=== PATIENT | female | born 1945 | race Caucasian/White ===

== ENCOUNTER → 2017-11-24 12:39 | Outpatient (CLI) | payer MEDICARE, SELFPAY ==
--- NOTE | 2017-11-24 12:45 | BI_ITS ---
MAMMOGRAPHY - BILATERAL SCREENING REASON FOR EXAM: Female, 72 years old. Routine annual screening examination. PERTINENT HISTORY: Non-contributory. TECHNIQUE: Digital bilateral breast vipin (3D mammographic acquisition) in the CC and MLO projections. 2-D mediolateral oblique (MLO) and craniocaudad (CC) views of both breasts were obtained. CAD: Full Field Digital Mammography with Computer Added Detection was performed. COMPARISON: Comparison is made with prior study dated October 14, 2016 and May 13, 2015. FINDINGS: Breast Composition: The breasts are heterogeneously dense, which may obscure small masses. There are no dominant masses or suspicious calcifications. No other significant abnormalities are identified. There has been no significant change since the prior study. BI/SCREENING MAMM (CAD), BILAT IMPRESSION: Stable bilateral screening mammogram. Yearly follow-up mammogram recommended. (A) ASSESSMENT CATEGORY: BIRADS Category 1: Negative. A letter regarding these results will be sent to the patient by the facility within 30 days. Approximately 10% of breast cancers are not detected by mammography. A normal mammogram should not delay biopsy of a clinically suspicious abnormality. [id number] Electronically Signed: Tucker Kerr MD at 8:25 EDT Tel [phone], Service support ,
== END ==
PROVIDERS: Family Provider Family Medicine; PCP Family Medicine; Visit Provider Family Medicine
DX: Z00.00 Encounter for general adult medical examination without abnormal findings (principal); Z12.31 Encounter for screening mammogram for malignant neoplasm of breast
CPT/HCPCS: 77063; 77067

== ENCOUNTER → 2019-04-03 10:15 | Outpatient (CLI) | payer MEDICARE, SELFPAY ==
[2017-01-18 10:55] VITALS: BMI 22.1
[2019-04-03 12:52] LABS: Anion Gap 4 (5-15); BUN 12 mg/dL (7-18); BUN/Creat Ratio 16.8 RATIO (10-20); Chloride 103 mmol/L (98-107); Cholesterol 235 mg/dL (200); Creatinine, Serum 0.71 mg/dL (0.55-1.02); EST Glomerular Filtration Rate 86 mL/min (>60); Est Glom Filt Rate - Afr Amer 104 mL/min (>60); Glucose 103 mg/dL (74-106); High Density Lipoprotein 87 mg/dL; Sodium Level 136 mmol/L (136-145); Triglycerides 177 mg/dL; Very Low Density Lipoprotein 35 mg/dL (5-40); Vitamin D,25 Hydroxy 29.8 ng/mL (29.95-100.01)
== END ==
PROVIDERS: Family Provider Family Medicine; PCP Family Medicine; Referring Provider Family Medicine; Visit Provider Family Medicine
DX: Z00.00 Encounter for general adult medical examination without abnormal findings (principal); N95.9 Unspecified menopausal and perimenopausal disorder
CPT/HCPCS: 36415; 80048; 80061; 82306

== ENCOUNTER → 2019-04-30 14:22 | Outpatient (CLI) | payer MEDICARE, SELFPAY ==
[2017-01-18 10:55] VITALS: BMI 22.1
--- NOTE | 2019-04-30 14:24 | BI_ITS ---
MAMMOGRAPHY - BILATERAL SCREENING REASON FOR EXAM: Female, 73 years old. Routine annual screening examination. PERTINENT HISTORY: Non-contributory. TECHNIQUE: Digital bilateral breast tolu (3D mammographic acquisition) in the CC and MLO projections. 2-D mediolateral oblique (MLO) and craniocaudad (CC) views of both breasts were obtained. CAD: Full Field Digital Mammography with Computer Added Detection was performed. COMPARISON: Comparison is made with prior study dated November 24, 2017 and October 14, 2016. FINDINGS: Breast Composition: The breasts are heterogeneously dense, which may obscure small masses. There are no dominant masses or suspicious calcifications. No other significant abnormalities are identified. There has been no significant change since the prior study. BI/SCREEN MAMM (CAD) W/TOLU BILAT IMPRESSION: Stable bilateral screening mammogram. Yearly follow-up mammogram recommended. (A) ASSESSMENT CATEGORY: BIRADS Category 2: Benign. A letter regarding these results will be sent to the patient by the facility within 30 days. Approximately 10% of breast cancers are not detected by mammography. A normal mammogram should not delay biopsy of a clinically suspicious abnormality. [id number] Electronically Signed: Tucker Kerr, at 15:44 EST , Service support ,
--- NOTE | 2019-04-30 14:27 | BD_ITS ---
STUDY: DUAL ENERGY X-RAY ABSORPTIOMETRY / DXA REASON FOR EXAM: Female, 73 years old. The patient is postmenopausal. Loss of height. TECHNIQUE: Bone Mineral Density (BMD) measurements of lumbar spine and bilateral hips were obtained. COMPARISON: Comparison is made with prior study dated August 06, 2013. FINDINGS: Lumbar Spine (L1-L4): g/cm2 (1.161) / T-score (-0.2) / Z-score (1.5) Findings are suggestive of normal bone density with a low fracture risk. Left Femur Total: g/cm2 (1.053) / T-score (0.4) / Z-score (1.9) Left Femoral Neck: g/cm2 (0.988) / T-score (-0.4) / Z-score (1.4) Right Femur Total: g/cm2 (1.046) / T-score (0.3) / Z-score (1.9) Right Femoral Neck: g/cm2 (0.951) / T-score (-0.6) / Z-score (1.1) The T-Scores on the most recent prior examination were: Lumbar Spine (L1-L4): There has been improvement of bone density since the previous examination. Left Femur Total: which represents a worsening of 4.6%. Right Femur Total: which represents a worsening of 4.8%. BD/Dexa Bone Density Study IMPRESSION: The patient is considered normal as outlined below according to World [place] Organization (WHO) criteria with a low fracture risk. There has been worsening of bone density since the previous examination. Reference Information: The T-score is the number of standard deviations above or below the standard which is normal for young adults at their peak bone mineral density. The World Health Organization (WHO) interprets the T-scores as follows: Above -1 Normal bone density Between -1 and -2.5 Osteopenia Equal to / or below -2.5 Osteoporosis As a practical clinical guideline, osteopenia may be graded as follows: Mild -1 through -1.5 Moderate -1.6 through -2.0 Severe -2.1 through -2.4 The Z-score is the number of standard deviations above or below age-matched controls. A Z-score of less than -1.5 would be considered abnormal. References: 1. NIH Osteoporosis and Related Bone Diseases http://www.osteo.org 2. International Society for Clinical Densitometry http://www.iscd.org 3. National Osteoporosis Foundation http://www.nof.org Electronically Signed: Tucker Kerr, at 13:12 EST , Service support ,
== END ==
PROVIDERS: Family Provider Family Medicine; PCP Family Medicine; Referring Provider Family Medicine; Visit Provider Family Medicine
DX: Z12.31 Encounter for screening mammogram for malignant neoplasm of breast (principal); N95.9 Unspecified menopausal and perimenopausal disorder
CPT/HCPCS: 77063; 77067; 77080

== ENCOUNTER 2019-05-10 09:30 | Outpatient (RCR) | payer MEDICARE, SELFPAY ==
--- NOTE | 2019-04-10 15:30 | HP.PTEVAL ---
Patient's Visit Information MARELY ZARAGOZA is a 73 year old F referred to Physical Therapy by Jen Poon MD with a diagnosis of RIGHT SHOULDER STAIN. Date of Evaluation: 04/10/19 Physical Therapist: Efren Hays, PT, Cert MDT, OCS - Visit Plan Frequency: 2x /Week Duration: 4 Weeks Plan: PT INTERVENTION POSTURAL EX'S ,RTC /SCAPULAR STRENGTHENING,MODLATIES FOR PAIN RELEIVE - Subjective Findings: This 73 y/o female presents to physical therapy with right shoulder strain.Patient has h/o shoulder pain several years. But,most recently past several months developed increase shoulder pain from doing outside yard work and gardenig.Location lateral /anterior shoulder region. Patient descibes as pain pinches with rotation in foward postion. Symptoms worse with OH activities,lifting ADL'S . Denies parathesia/tingling.Patient described as weakness. Patient pain affects sleeping. Patient MD recommended PT. Patient right shoulder pain affects QOL and function. SOCIAL: single. VOCATION: retired - Pain Right Shoulder Pain Intensity (Out of 10): 3 Pain Intensity Range: 10 - Objective POSTURE: mild foward posture ,shoulders rounded. NEURO:intact. PALAPTION: anterior shoulder. AROM: shoulder flexion 150 /abduction 150 degrees pain,90 degrees,IR 70 degrees pain. MMT: Infraspinatous 4-/5 pain .subscapularis 4/5,supraspinatous 4-/5 ,deltoid mild pain - Special Tests R Shoulder External Rotation Lag Test - RC Tear: Negative R Shoulder Drop Sign - IS Test: Negative R Shoulder Empty Can - SS: Positive R Shoulder Belly Press - SupScap: Negative R Shoulder Neer - Impingement: Positive R Shoulder Willard Brandon - Impingement: Positive R Shoulder Yeargasons - SLAP: Negative R Shoulder Shrug Sign - OA/Adhesive Capsulitis: Negative - Goals Goal 1:: Patient to be Independant with HEP Goal Time Frame: 4-6 Weeks Goal 2:: Patient to improve posture for ADL'S Goal Time Frame: 4-6 Weeks Goal 3:: Patient to decrease shoulder pain by 50 % or> for ADLS' and housework tasks. Goal Time Frame: 4-6 Weeks Goal 4:: Patient to increase strength RTC and deltoid 4/5 to impove function with less pain Goal Time Frame: 4-6 Weeks Goal 5:: Patient to improve quick dash by 5 points or> to improve QOL. Goal Time Frame: 4-6 Weeks - Rehabilitation Potential Physical Therapy Diagnosis: Patient has right shoulder tendonesis with RTC involvement with pain with MMT, shoulder ROM ,affects ADLS and activities above 90 ,sleeping thus benifit from skilled PT Rehabilitation Potential: Good - Anticipated Interventions Patient/Client Instruction: Educate patient on: Condition, Plan of Care For the Purpose of:: To decrease pain, To decrease swelling/inflammation, To improve muscle performance and motor function, To improve ability to perform ADL's, To increase tolerance to activity/condition/position, To improve ability of physical actions for home/community/work/leisure, To increase flexibility/ROM, To reduce risk of recurrence, To improve ability to perform tasks related to life management Therapeutic Exercise to Include: Strength training, Postural training, Active ROM, Scapular Strength/Stabilization Comment: RTC For the Purpose of:: To decrease pain, To increase ROM, To improve muscle performance and motor function, To improve ability to perform ADL's, To improve performance and independence with ADL's, To improve ability of physical actions for home/community/work/leisure, To improve health of tissue, To decrease soft tissue restriction, To increase flexibility/ROM, To improve ability to perform tasks related to life management TENS: Yes IF ES: Yes Cryotherapy (ice pack, ice massage): Yes Thermo therapy (hot pack): Yes Ultrasound (thermal/non thermal): Yes For the Purpose of:: To decrease pain, To decrease swelling/inflammation, To increase ROM, To improve nutrient delivery to tissue, To increase oxygenation perfusion, To improve health of tissue, To decrease soft tissue restriction Thank you for the opportunity to evaluate your patient. For Medicare and Medicare HMO plans, please review the plan of care and approve it. It will need to be FAXED BACK to us at [phone] for Medicare purposes. For Medicare only, by signing this I certify the plan of care. Please let me know if there are questions or concerns regarding this plan of care. Physician Signature: Date:
== END 2019-05-10 17:00 | disposition home or self-care (01) ==
LOC: PT 09:30
PROVIDERS: Family Provider Family Medicine; PCP Family Medicine; Referring Provider Family Medicine; Visit Provider Family Medicine
DX: S46.911D Strain of unspecified muscle, fascia and tendon at shoulder and upper arm level, right arm, subsequent encounter (principal)
CPT/HCPCS: 97014; 97035; 97110; 97162; 97530; G0283

== ENCOUNTER → 2019-05-28 13:10 | Outpatient (CLI) | payer MEDICARE, SELFPAY ==
[2019-05-28 12:59] VITALS: BMI 22.1
--- NOTE | 2019-05-28 13:10 | RAD_ITS ---
STUDY: X-RAY - RIGHT SHOULDER REASON FOR EXAM: Pain. TECHNIQUE: 3 view(s) of the shoulder. COMPARISON: None. FINDINGS: Normal glenohumeral articulation. There is mild acromioclavicular arthrosis. Normal acromion. Normal humeral head and visualized proximal humerus. There is a calcification adjacent to the lesser tuberosity suggestive of subscapularis calcific tendinitis. Normal visualized pulmonary apex. RAD/Shoulder min 2 Views IMPRESSION: Subscapularis calcific tendinitis. Mild acromioclavicular arthrosis. Electronically Signed: Stephon Horn MD at 15:11 EST Tel , Service support ,
--- NOTE | 2019-05-28 13:10 | RAD_ITS ---
STUDY: X-RAY - CERVICAL SPINE REASON FOR EXAM: Female, 73 years old. Pain. TECHNIQUE: 5 view(s) of the cervical spine were obtained. COMPARISON: None FINDINGS: Normal anterior atlantoaxial articulation. Normal odontoid process. Reversal of curvature. 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 3 mm retrolisthesis C5 on C6. Otherwise normal alignment. Oblique views show narrowing of the right neural foramina at C5-C6 and C6-C7 and on the left at 4, C4-C5, C6-C7. No fractures or dislocations. The soft tissue structures are unremarkable. RAD/Cerv Spine 4 or 5 Views IMPRESSION: Multilevel degenerative changes including neural foraminal narrowing as above. Electronically Signed: Shaquille Elias MD at 21:25 EST , Service support ,
== END ==
PROVIDERS: Family Provider Family Medicine; PCP Family Medicine; Referring Provider Orthopaedic Surgery; Visit Provider Orthopaedic Surgery
DX: M75.31 Calcific tendinitis of right shoulder (principal); M19.011 Primary osteoarthritis, right shoulder; M50.322 Other cervical disc degeneration at C5-C6 level; M48.02 Spinal stenosis, cervical region
CPT/HCPCS: 72050; 73030

== ENCOUNTER → 2019-06-10 06:31 | Outpatient (CLI) | payer MEDICARE, SELFPAY ==
[2019-05-28 12:59] VITALS: BMI 22.1
--- NOTE | 2019-06-10 06:33 | MRI_ITS ---
STUDY: MRI RIGHT SHOULDER REASON FOR EXAM: Female, 73 years old. Right shoulder pain with limited range of motion. Pain radiating into biceps. TECHNIQUE: Standardized fat and water weighted pulse sequences were obtained in all 3 orthogonal planes. COMPARISON: None. FINDINGS: Supraspinatus tendinosis with a full thickness partial width tear of the far anterior fibers measuring approximately 8 mm in widest diameter (coronal series 6 images 14-17). Infraspinatus tendinosis with a longitudinal intrasubstance partial tear without a full-thickness tear (coronal series 6 images 9-12). Subscapularis tendinosis without a full-thickness tear (axial series 3 images 8-13). Normal teres minor tendon. Normal supraspinatus muscle. Normal infraspinatus muscle. Normal subscapularis muscle. Normal teres minor muscle. Mild thinning of the articular cartilage of the glenohumeral joint with a glenohumeral joint effusion (axial series 3 images 8-17). Marked cystic change in the lateral aspect of the humeral head (axial series 3 images 8-11). Normal biceps labral complex. Torn, retracted long head of the biceps tendon (axial series 3 images 6-16). Normal labrum. Normal capsulo- ligamentous complex. Normal rotator interval. Acromioclavicular joint hypertrophy with minimal narrowing of the subacromial space (coronal series 6 images 10-14). There is a Type II morphology (curved), with a neutral orientation. Fluid in the subacromial-subdeltoid bursa (coronal series 6 image 12). Normal visualized coracohumeral and coracoacromial ligaments. Normal quadrilateral space. Normal axillary space. Normal deltoid muscle. Normal trapezius muscle. MRI/Upper Ext Joint Only(Routine) IMPRESSION: Supraspinatus tendinosis with an 8 mm in diameter full-thickness partial width tear of the far anterior fibers. Infraspinatus tendinosis with an intrasubstance longitudinal partial tear without a full-thickness tear. Subscapularis tendinosis without a full thickness tear. Mild thinning of the articular cartilage of the glenohumeral joint. Cystic change in the greater tuberosity of the humeral head. Torn, retracted long head of the biceps tendon. Acromioclavicular joint hypertrophy with minimal narrowing of the subacromial space. Glenohumeral joint effusion with fluid in the subacromial-subdeltoid bursa. Electronically Signed: Alexandre Campbell MD at 12:07 EST , Service support ,
== END ==
PROVIDERS: Family Provider Family Medicine; PCP Family Medicine; Referring Provider Orthopaedic Surgery; Visit Provider Orthopaedic Surgery
DX: M25.311 Other instability, right shoulder (principal)
CPT/HCPCS: 73221

== ENCOUNTER 2019-07-03 05:57 | Day surgery (SDC) | payer MEDICARE, SELFPAY ==
[2019-06-20 08:53] VITALS: BMI 22.1
--- NOTE | 2019-06-20 09:21 | HP_ITS ---
I have re-examined the patient. There are no clinical changes since date of exam. Intake Vital Signs 06/20/19 BMI 22.1 Intake Visit Reasons: RIGHT SHOULDER Allergies bee pollen Allergy (Verified 01/11/17 08:08) Anaphylaxis Penicillins [PCN] Allergy (Verified 01/11/17 08:08) Hives Medications Aspirin [Aspirin, Baby] 81 mg PO DAILY@0800 01/11/17 [History Confirmed 06/20/19] Niacinamide [Niacin] 500 mg PO BID 01/11/17 [History Confirmed 06/20/19] Davison-3 Fatty Acids/Fish Oil [Fish Oil 1,000 mg Capsule] 1 ea PO DAILY 01/11/17 [History Confirmed 06/20/19] Propranolol HCl [Inderal] 10 mg PO DAILY 01/11/17 [History Confirmed 06/20/19] cholecalciferol (vitamin D3) 4,000 unit capsule 4,000 unit PO DAILY 05/28/19 [History Confirmed 06/20/19] PFSH Social History (Updated 06/20/19 @ 10:03 by Catherine Ramon DO) Smoking Status: Never smoker HPI RIGHT SHOULDER: Surgical H&P: Yes Details: Parts of this documentation were recorded by a scribe, this documentation accurately reflects the service provided and the decisions made by me, Catherine Ramon DO 06/20/19 [id number]. MARELY ZARAGOZA is a 73 year old F here today for F/U after having her MRI of right shoulder completed on 06/10/19. Denies numbness, tingling or other associated symptoms. Patient had a subacromial injection on 05/28/2019 which she states has relieved 80% of her pain. She is still getting an occasional sharp pain over her anterior shoulder which radiates over her biceps. She also states that she is still having clicking/cracking at times which is not painful. Denies any other changes. ROS ENT Denies neck pain Musc Denies neck pain, Denies numbness, Denies tingling Skin/Breast Denies redness, Denies lesions, Denies itching, Denies rash, Denies skin pain Neuro No numbness, No tingling Ortho Exam Right Shoulder Testing: Positive Hawkin's, TTP Biceps, AROM-Forward Elevation 0-180, PROM- Forward Elevation 0-180 and empty can; negative AROM-External Rotation at side 0-60 No rales rhonchi wheezing, no abdominal pain, no audible bruits Assessment & Plan Problems 1. Complete tear of right rotator cuff, unspecified whether traumatic M75.121 2. Biceps tendonitis on right M75.21 Plan Personally reviewed the MRI and explained that she has a rotator cuff tear, her treatment options are do nothing, steroid injections every 4 months, PT or surgery for repair if the conservative treatments fail. Reviewed risks and explained that the longer she waits for surgery the increased risk of failure due to the health of the muscle. Reviewed the difference between biceps tenodesis vs tenotomy. Reviewed the pre-operative plans with the patient. Risks and benefits of the procedure were fully explained, including but not limited to infection, neurovascular injury, continued pain, arthritis, stiffness, need for further surgery, re-injury, DVT, PE, general risks of anesthesia, and loss of limb or life. The patient understands all the risks and does wish to proceed with written consent. Follow up post op or sooner if pain, swelling, numbness or associated symptoms, or concerns develop. All questions answered. Patient in agreement of plan. Coding Level of Care Code Off vis,est,level 4 Diagnoses Complete tear of right rotator cuff, unspecified whether traumatic M75.121 ??Rotator cuff tear extent: complete ??Rotator cuff tear trauma status: unspecified whether traumatic Biceps tendonitis on right M75.21 06/20/19 1003 <Electronically signed by Catherine ram DO> Date _ Catherine Ramon DO
--- NOTE | 2019-06-27 12:55 | EKG12_ITS ---
Test Reason : PRE-OP Blood Pressure : / mmHG Vent. Rate : 056 BPM Atrial Rate : 056 BPM P-R Int : 130 ms QRS Dur : 092 ms QT Int : 388 ms P-R-T Axes : 052 049 047 degrees QTc Int : 374 ms Sinus bradycardia Minimal voltage criteria for LVH, may be normal variant Borderline ECG Confirmed by SUSAN BIRD, SCARLET ([id number]), slot editor WAN MENJIVAR ([id number]) on 06/28/2019 9:45:51 AM Referred By: Catherine Ramon Confirmed By:KRISTIN DAVIS MD
[2019-07-03 06:34] VITALS: PULSE 64; RESP 16; TEMP 36.8; O2SAT 100; BMI 23.1
[2019-07-03] MEDS: Lactated Ringers 1,000 ML 100 ML IV ×2 (06:42→09:14)
--- NOTE | 2019-07-03 07:17 | PCM.DC.ORTHO ---
Discharge Diet: No Restrictions - remove dressings in 4 days and apply bandaids to incision sites, may get incision wet at that time, call with concerns, follow up in 10-14 days for suture removal and initiation of pt, may move hand and elbow as tolerated, Discharge Activity: May Not Drive May shower in (days): 1 Ice area for (Minutes): 20 - Every hour while awake. Weight Bearing Status: Weight bearing as tolerated Keep extremity elevated above heart level: Operative Extremity Call your doctor if your incision/area has: Continuous Slow Oozing, Sudden Increased Bleeding, Increased Pain/ Swelling, Increased Redness, Foul Smelling Discharge Call your doctor if you observe: Fever of 101 or Higher, Coldness, Increased Pain, Numbness or Tingling, Change in Color, Calf discomfort Allergies/Adverse Reactions: Allergies bee pollen Allergy (Verified 07/03/19 06:30) Anaphylaxis benzocaine Allergy (Verified 07/03/19 06:30) Hives Penicillins [PCN] Allergy (Verified 07/03/19 06:30) Hives Medications to take at Discharge Aspirin [Aspirin, Baby] 81 mg PO DAILY@0800 01/11/17 Niacinamide [Niacin] 500 mg PO BID 01/11/17 [place]uita-3 Fatty Acids/Fish Oil [Fish Oil 1,000 mg Capsule] 1 ea PO DAILY 01/11/17 Propranolol HCl [Inderal] 10 mg PO DAILY 01/11/17 cholecalciferol (vitamin D3) 4,000 unit capsule 2,000 unit PO DAILY 05/28/19 Hydrocodone Bitart/Apap 5-325 [Harford 5MG-325MG] 1 - 2 tab PO Q6H PRN PRN 5 Days #40 tab 07/03/19 Zolpidem Tartrate [Ambien (Generic)] 5 mg PO QHS PRN PRN #14 tab 07/03/19 The following prescriptions were given: Zolpidem Tartrate [Ambien (Generic)] 5 mg PO QHS PRN PRN #14 tab PRN Reason: Insomnia Transmission Status: Received by [facility] Hydrocodone Bitart/Apap 5-325 [[place]ford 5MG-325MG] 1 - 2 tab PO Q6H PRN PRN 5 Days #40 tab PRN Reason: Pain Transmission Status: Received by [facility] Orders to be completed after discharge: 12 Lead EKG [[facility]] Time Frame: 06/26/19, Facility: [facility], Location: Cardiovascular Services Primary Care Physician: Jen Poon MD [Primary Care Provider] - Test Results: Test results from this visit will be discussed in further detail at your follow-up appointment, if applicable. Please Follow Up With: Catherine Ramon, - [phone]
--- NOTE | 2019-07-03 07:17 | PCM.OPRPT ---
Report of Operation Date of Procedure: 07/03/19 Pre-Operative Diagnosis: right shoulder rotator cuff tear, biceps tendon partial tear, subacromial impingment syndrome Post-Operative Diagnosis: same Surgery/Procedure Performed:: sars, rotator cuff repair- subscap with pushlock, supraspinatus with swivel lock arthrex, biceps tenotomy/debridement; subacromial decompression/acromioplasty respiratory scientist: Corby Encinas Type of Anesthesia:: General Anesthesiologist: Tyler Patterson Estimated Blood Loss (mL): none Fluids Replaced: 1100cc lr Description of Procedure: Preop note Patient is 73-year-old female with continued right shoulder pain pain overhead patient failed conservative treatment MRI confirms rotator cuff tear partial biceps tendon and impingement syndrome. Patient failed conservative treatment like to proceed with right shoulder arthroscopy. Risk benefits alternatives surgery discussed with patient. Risks including but not limited to blood loss, blood clot, infection, neurovascular, failure procedure, loss of life and loss of limb. Patient is aware like proceed with right shoulder arthroscopy repair as indicated. Operative note Patient seen and examined preoperative holding area. Right shoulder was marked. Patient brought to the operating room placed supine on the operating table. Signed, anesthesia, antibiotics were administered. The right arm was prepped and draped in usual sterile fashion after tourniquet after beachchair positioning was maintained. All bony prominences well-padded SCDs placed in her bilateral lower extremity. Please note the [facility] through beachchair position we did recheck her blood pressure was stable throughout. Again we then prepped the arm right arm in usual sterile and standard technique and marked out our bony landmarks for portal placement. Timeout was performed. We then insufflated the glenohumeral joint from the posterior aspect. We had good return. We created our posterior portal with 11 blade began our diagnostic arthroscopy. The patella the glenohumeral joint was intact. There was the labral labrum was intact anteriorly and posterior. There was some fraying and a full-thickness tear at the leading edge of the end of the supraspinatus as well as a partial tear of the superior margin of the subscap and almost complete tear of the biceps tendon with delamination. We then created an anterior portal. We began our shaving and further released the biceps tendon and debrided its insertion. We then debrided back the undersurface of the rotator cuff of the supraspinatus we then evaluate the subscap in better detail. Again it was a leading edge we then prepared the bed with a shaver and a bur further at the lesser his footprint. We placed 2 fiber links into the subscap and then placed those down to a push lock at the level of the the bed that we created at the lesser tuberosity. Good fixation of our subscap at that time we then moved to the subacromial space created a lateral portal under direct visualization. Patient had extensive bursitis throughout. This was resected with a combination of a shaver and ablator during that we completed any bleeding bleeders. We then were able to visualize the leading edge of the supraspinatus tear that we had marked out we are intra-articular. It was full-thickness. It was a small full-thickness therefore we decided to do placed to placed a fiber tape and then placed into a lateral swivel lock Arthrex. He had a little bit of the tear that was little anterior as we did not use the remaining stitch from the anchor itself to complete the fixation we had good fixation of that time and did cover the footprint in its entirety. We then irrigated the shoulder with copious muscle sterile saline. Coagulating bleeders we did encounter. We then closed the portals with interrupted 4-0 nylon stitches. Sterile dressings were applied. Patient was placed in a sling. Patient taught procedure well no complication transferred recovery room in stable condition. Postoperative note Nonweightbearing right upper extremity Follow-up in 10 to 14 days Call with increased pain numbness tingling further issues arise Pharmacy has prescriptions Discussed with family We will give pictures at postop visit This note was generated with [employer] dictation software. It may contain incorrect words, spelling, and punctuation that were not noted in checking the note before signing.
[2019-07-03] MEDS: Cefazolin 2 GM in 0.9% Normal Saline 100 ML IV (07:26)
[2019-07-03] MEDS: Mupirocin Ointment 22gm Tube 1 APPLIC (08:30)
[2019-07-03] MEDS: Epinephrine (1 mg/ml) 1 MG/ML VIAL (08:30)
[2019-07-03 09:09] VITALS: BP 156/70; BP 172/80; PULSE 56; RESP 16; TEMP 36.1; O2SAT 97
[2019-07-03 09:15] VITALS: BP 156/70; BP 175/77; PULSE 56; RESP 16; O2SAT 97
[2019-07-03 09:25] VITALS: BP 138/92; BP 156/70; PULSE 53; RESP 16; O2SAT 97
[2019-07-03 09:29] VITALS: BP 137/63; BP 156/70; PULSE 52; RESP 16; TEMP 36.1; O2SAT 98
[2019-07-03 10:52] VITALS: BP 151/63; BP 156/70; PULSE 52; RESP 16; TEMP 36.2; O2SAT 99
== END 2019-07-03 11:09 | disposition home or self-care (01) ==
LOC: SDC 06:00 → AC 06:04
PROVIDERS: Family Provider Family Medicine; PCP Family Medicine; Referring Provider Orthopaedic Surgery; Visit Provider Orthopaedic Surgery
PROC: (CPT 29827; principal; 2019-07-03 07:10)
DX: M75.121 Complete rotator cuff tear or rupture of right shoulder, not specified as traumatic (principal); M66.321 Spontaneous rupture of flexor tendons, right upper arm; M75.21 Bicipital tendinitis, right shoulder; M75.41 Impingement syndrome of right shoulder; I34.1 Nonrheumatic mitral (valve) prolapse; Z79.82 Long term (current) use of aspirin
CPT/HCPCS: 01630; 29822; 29826; 29827; 64415; 93005; J7120; J2405

== ENCOUNTER 2020-01-15 09:30 | Outpatient (RCR) | payer MEDICARE, SELFPAY ==
[2019-07-08 12:38] VITALS: BMI 23.1
--- NOTE | 2019-07-22 14:30 | HP.PTEVAL ---
Patient's Visit Information MARELY ZARAGOZA is a 73 year old F referred to Physical Therapy by VONNIE Cavanaugh with a diagnosis of S/P RIGHT SUBSCAPULARIS AND SUPRASPINATOUS REPAIR WITH BICEPS TENOTOMY. Date of Evaluation: 07/22/19 Physical Therapist: Efren Hays PT, Cert MDT, OCS - Visit Plan Frequency: 2x /Week Duration: 3 Months Plan: S/P SUBSCAPULARS AND SUPRASPINATOUS REPAIR AND TENOTOMY BICEPS 07/03/19. SLING FOR 6WEEKS,NO ACTIVE BICEPS 6WEEKS ,NO ER PAST 30 DEGREES,CROSS BODY ADDUCTION ,NO ACTIVE IR/ER BEHIND BACK ,PUSHING BW FOR 12 WEEKS. SEE GUIDELINES FOR PROGRESSION RTC REPAIR WITH SUBSCAPULARIS REPAIRS. INTIAL PROM FOR 6WEEKS FLEXION ,ER TO 30 DEGREES,MAMUAL THERAPY,CP/MHP - Subjective Findings: This 73 y/o female presents to physical therapy s/p right subscapularis and supraspinatous repair and biceps tenotomy on Jul 03 at [facility] d/c to home with with george estrada. Patient had shoulder pain 6 months which progressively worse with activity. Patient seen tried PT didn't help and tried cortizone injections. Patient had MRI showed 8cm tear supraspinatous,long head tear and subscapular . Patient seen recommended to start PT PROM. Patient has ache no pain MEDS. Denies parathesia/tingling. Patient sleeps okay. Patient has limiations with all ADL'S ,self hygine and housework tasks.Patient surgery affects QOL and function.RTD to 3weeks. VOCATION: retired. SOCIAL: single - Pain Right Shoulder Pain Intensity (Out of 10): 6 Pain Intensity Range: 10 - Objective POSTURE: mild foward posture,sling intact. SKIN: inscion well approximate,ecchymosis distal elbow. NEURO: INTACT. PROM: shoulder flexion 90 degrees,ER 5 degrees with patient fairly relaxed with min pain. elbow PROM WFL decrease elbow ext 10 degrees. MMT: NT RIGHT shoulder - Goals Goal 1:: Independant with HEP PROGRESSION. Goal Time Frame: 12-16 Weeks Goal 2:: Patient to improve PROM shoulder flexion 140 degrees ,ER 30 DEGREES Goal Time Frame: 6-8 Weeks Goal 3:: Patient to increase AROM shoulder flexion 150,abd in scaption 145 degrees to improve function Goal Time Frame: 12-16 Weeks Goal 4:: Patient increase strength of right shoulder RTC infraspinatous/subscapularis 4-/5,supraspinatous 4-/5 : 3+/5,deltoid 3+/5 to improve function with ADL'S Goal Time Frame: 12-16 Weeks Goal 5:: Pateint increase quick dash by 20 ponts or > to improve QOL and function. Goal Time Frame: 12-16 Weeks Goal 6:: Patient be able to return to ADLS' and housework tasks with min limitations. Goal Time Frame: 12-16 Weeks - Rehabilitation Potential Physical Therapy Diagnosis: This patient underwents s/p RTC repair subscapularis with push lock,supraspiantous swival lock arthrex,biceps tentomy/debridement,subacromial decompression /acromioplasty on 07/03/19 with decrease ROM,pain,strength ,function thus benifit from skilled PT. Rehabilitation Potential: Good - Anticipated Interventions Patient/Client Instruction: Educate patient on: Condition, Plan of Care, Risk Factors For the Purpose of:: To decrease pain, To increase ROM, To improve muscle performance and motor function, To improve ability to perform ADL's, To increase tolerance to activity/condition/position, To improve performance and independence with ADL's, To improve ability of physical actions for home/community/work/leisure, To decrease soft tissue restriction, To increase flexibility/ROM, To assume or resume ADL's, To reduce risk of recurrence, To improve ability to perform tasks related to life management Therapeutic Exercise to Include: Strength training, Postural training, Passive ROM, Active ROM Comment: INTIAL PROM FLEXION .ER TP 30 DEGREES. RTC/DELTOID For the Purpose of:: To decrease pain, To increase ROM, To improve muscle performance and motor function, To improve ability to perform ADL's, To increase tolerance to activity/condition/position, To improve performance and independence with ADL's, To improve ability of physical actions for home/community/work/leisure, To improve gait and locomotor functions, To improve health of tissue, To decrease soft tissue restriction, To increase flexibility/ROM, To assume or resume ADL's, To improve ability to perform tasks related to life management Manual Therapy Techniques to Include: Mobilization, Passive ROM Comment: [place] FISCHERS/OSSILATION 1-3 For the Purpose of:: To decrease pain, To increase ROM, To improve nutrient delivery to tissue, To increase oxygenation perfusion, To improve health of tissue, To decrease soft tissue restriction, To increase flexibility/ROM TENS: Yes IF ES: Yes Cryotherapy (ice pack, ice massage): Yes Thermo therapy (hot pack): Yes For the Purpose of:: To decrease pain, To decrease swelling/inflammation, To improve health of tissue, To decrease soft tissue restriction Thank you for the opportunity to evaluate your patient. For Medicare and Medicare HMO plans, please review the plan of care and approve it. It will need to be FAXED BACK to us at [phone] for Medicare purposes. For Medicare only, by signing this I certify the plan of care. Please let me know if there are questions or concerns regarding this plan of care. Physician Signature: Date:
--- NOTE | 2019-07-23 08:16 | HP.PTEVAL ---
Patient's Visit Information MARELY ZARAGOZA is a 73 year old F referred to Physical Therapy by VONNIE Cavanaugh with a diagnosis of S/P RIGHT SUBSCAPULARIS AND SUPRASPINATOUS REPAIR WITH BICEPS TENOTOMY. Date of Evaluation: 07/22/19 Physical Therapist: Efren Hays PT, Cert MDT, OCS - Visit Plan Frequency: 2x /Week Duration: 3 Months Plan: S/P SUBSCAPULARS AND SUPRASPINATOUS REPAIR AND TENOTOMY BICEPS 07/03/19. SLING FOR 6WEEKS,NO ACTIVE BICEPS 6WEEKS ,NO ER PAST 30 DEGREES,CROSS BODY ADDUCTION ,NO ACTIVE IR/ER BEHIND BACK ,PUSHING BW FOR 12 WEEKS. SEE GUIDELINES FOR PROGRESSION RTC REPAIR WITH SUBSCAPULARIS REPAIRS. INTIAL PROM FOR 6WEEKS FLEXION ,ER TO 30 DEGREES,MANUAL THERAPY,CP/MHP,PROGRESS PHASE 2,PHASE 3 PER GUIDELINES - Subjective Findings: This 73 y/o female presents to physical therapy s/p right subscapularis and supraspinatous repair and biceps tenotomy on Jul 03 at [facility] d/c to home with with george estrada. Patient had shoulder pain 6 months which progressively worse with activity. Patient seen tried PT didn't help and tried cortizone injections. Patient had MRI showed 8cm tear supraspinatous,long head tear and subscapular . Patient seen recommended to start PT PROM. Patient has ache no pain MEDS. Denies parathesia/tingling. Patient sleeps okay. Patient has limiations with all ADL'S ,self hygine and housework tasks.Patient surgery affects QOL and function.RTD to 3weeks. VOCATION: retired. SOCIAL: single - Pain Right Shoulder Pain Intensity (Out of 10): 6 Pain Intensity Range: 10 - Objective POSTURE: mild foward posture,sling intact. SKIN: inscion well approximate,ecchymosis distal elbow. NEURO: INTACT. PROM: shoulder flexion 90 degrees,ER 5 degrees with patient fairly relaxed with min pain. elbow PROM WFL decrease elbow ext 10 degrees. MMT: NT RIGHT shoulder - Goals Goal 1:: Independant with HEP PROGRESSION. Goal Time Frame: 12-16 Weeks Goal 2:: Patient to improve PROM shoulder flexion 140 degrees ,ER 30 DEGREES Goal Time Frame: 6-8 Weeks Goal 3:: Patient to increase AROM shoulder flexion 150,abd in scaption 145 degrees to improve function Goal Time Frame: 12-16 Weeks Goal 4:: Patient increase strength of right shoulder RTC infraspinatous/subscapularis 4-/5,supraspinatous 4-/5 : 3+/5,deltoid 3+/5 to improve function with ADL'S Goal Time Frame: 12-16 Weeks Goal 5:: Pateint increase quick dash by 20 ponts or > to improve QOL and function. Goal Time Frame: 12-16 Weeks Goal 6:: Patient be able to return to ADLS' and housework tasks with min limitations. Goal Time Frame: 12-16 Weeks - Rehabilitation Potential Physical Therapy Diagnosis: This patient underwents s/p RTC repair subscapularis with push lock,supraspiantous swival lock arthrex,biceps tentomy/debridement,subacromial decompression /acromioplasty on 07/03/19 with decrease ROM,pain,strength ,function thus benifit from skilled PT. Rehabilitation Potential: Good - Anticipated Interventions Patient/Client Instruction: Educate patient on: Condition, Plan of Care, Risk Factors For the Purpose of:: To decrease pain, To increase ROM, To improve muscle performance and motor function, To improve ability to perform ADL's, To increase tolerance to activity/condition/position, To improve performance and independence with ADL's, To improve ability of physical actions for home/community/work/leisure, To decrease soft tissue restriction, To increase flexibility/ROM, To assume or resume ADL's, To reduce risk of recurrence, To improve ability to perform tasks related to life management Therapeutic Exercise to Include: Strength training, Postural training, Passive ROM, Active ROM Comment: INTIAL PROM FLEXION .ER TP 30 DEGREES. RTC/DELTOID For the Purpose of:: To decrease pain, To increase ROM, To improve muscle performance and motor function, To improve ability to perform ADL's, To increase tolerance to activity/condition/position, To improve performance and independence with ADL's, To improve ability of physical actions for home/community/work/leisure, To improve gait and locomotor functions, To improve health of tissue, To decrease soft tissue restriction, To increase flexibility/ROM, To assume or resume ADL's, To improve ability to perform tasks related to life management Manual Therapy Techniques to Include: Mobilization, Passive ROM Comment: G-H MOBS/OSSILATION 1-3 For the Purpose of:: To decrease pain, To increase ROM, To improve nutrient delivery to tissue, To increase oxygenation perfusion, To improve health of tissue, To decrease soft tissue restriction, To increase flexibility/ROM TENS: Yes IF ES: Yes Cryotherapy (ice pack, ice massage): Yes Thermo therapy (hot pack): Yes For the Purpose of:: To decrease pain, To decrease swelling/inflammation, To improve health of tissue, To decrease soft tissue restriction Thank you for the opportunity to evaluate your patient. For Medicare and Medicare HMO plans, please review the plan of care and approve it. It will need to be FAXED BACK to us at [phone] for Medicare purposes. For Medicare only, by signing this I certify the plan of care. Please let me know if there are questions or concerns regarding this plan of care. Physician Signature: Date:
--- NOTE | 2019-08-22 13:39 | HP.PTREVAL_ITS ---
VONNIE Cavanaugh, It has been my pleasure to treat MARELY ZARAGOZA over the last 10 visits for S/P RIGHT SUBSCAPULARIS AND SUPRASPINATOUS REPAIR WITH BICEPS TENOTOMY. Please see the progress note below for an update on the physical therapy plan of care! Subjective: Feeling better today ,but occassional sharp pain bicep Objective/Function: POSTURE: rounded shoulders head foward. ARROM: supine flexion 150 degrees,ER 30 Degrees. MMT: NT Plan Plan: S/P SUBSCAPULARS AND SUPRASPINATOUS REPAIR AND TENOTOMY BICEPS 07/03/19 - 8weeks 08/28/19. SLING FOR 6WEEKS,NO ACTIVE BICEPS 6WEEKS ,NO ER PAST 30 DEGREES,CROSS BODY ADDUCTION ,NO ACTIVE IR/ER BEHIND BACK ,PUSHING BW FOR 12 WEEKS. SEE GUIDELINES FOR PROGRESSION RTC REPAIR WITH SUBSCAPULARIS REPAIRS. INTIAL PROM FOR 6WEEKS FLEXION ,ER TO 30 DEGREES,MANUAL THERAPY,CP/MHP,PROGRESS PHASE 2,PHASE 3 PER GUIDELINES Goals Goal 1:: Independant with HEP PROGRESSION. Goal Time Frame: 12-16 Weeks Goal Progress: Progressing Goal 2:: Patient to improve PROM shoulder flexion 140 degrees ,ER 30 DEGREES Goal Time Frame: 6-8 Weeks Goal Progress: Goal Met Goal 3:: Patient to increase AROM shoulder flexion 150,abd in scaption 145 degrees to improve function Goal Time Frame: 12-16 Weeks Goal Progress: Progressing Goal 4:: Patient increase strength of right shoulder RTC infraspinatous/subscapularis 4-/5,supraspinatous 4-/5 : 3+/5,deltoid 3+/5 to improve function with ADL'S Goal Time Frame: 12-16 Weeks Goal Progress: Progressing Goal 5:: Pateint increase quick dash by 20 ponts or > to improve QOL and funct ion. Goal Time Frame: 12-16 Weeks Goal Progress: Progressing Goal 6:: Patient be able to return to ADLS' and housework tasks with min limitations. Goal Time Frame: 12-16 Weeks Goal Progress: Progressing Anticipated Interventions Patient/Client Instruction: Educate patient on: Condition, Plan of Care, Risk Factors For the Purpose of:: To decrease pain, To increase ROM, To improve muscle performance and motor function, To improve ability to perform ADL's, To increase tolerance to activity/condition/position, To improve performance and independence with ADL's, To improve ability of physical actions for ho me/community/work/leisure, To decrease soft tissue restriction, To increase flexibility/ROM, To assume or resume ADL's, To reduce risk of recurrence, To improve ability to perform tasks related to life management Therapeutic Exercise to Include: Strength training, Postural training, Passive ROM, Active ROM Comment: INTIAL PROM FLEXION .ER TP 30 DEGREES. RTC/DELTOID For the Purpose of:: To decrease pain, To increase ROM, To improve muscle performance and motor function, To improve ability to perform ADL's, To increase tolerance to activity/condition/position, To improve performance and independence with ADL's, To improve ability of physical actions for home/community/work/leisure, To improve gait and locomotor functions, To improve health of tissue, To decrease soft tissue restriction, To increase flexibility/ROM, To assume or resume ADL's, To improve ability to perform tasks related to life management Manual Therapy Techniques to Include: Mobilization, Passive ROM Comment: G-H MOBS/OSSILATION 1-3 For the Purpose of:: To decrease pain, To increase ROM, To improve nutrient delivery to tissue, To increase oxygenation perfusion, To improve health of tissue, To decrease soft tissue restriction, To increase flexibility/ROM TENS: Yes IF ES: Yes Cryotherapy (ice pack, ice massage): Yes Thermo therapy (hot pack): Yes For the Purpose of:: To decrease pain, To decrease swelling/inflammation, To improve health of tissue, To decrease soft tissue restriction Please do not hesitate to contact me at [phone] by phone or if you have questions or concerns regarding this new plan of care! Sincerely, Efren Hays, PT, Cert MDT, OCS
--- NOTE | 2019-09-25 11:11 | HP.PTREVAL_ITS ---
VONNIE Cavanaugh, It has been my pleasure to treat MARELY ZARAGOZA over the last 19 visits for S/P RIGHT SUBSCAPULARIS AND SUPRASPINATOUS REPAIR WITH BICEPS TENOTOMY. Please see the progress note below for an update on the physical therapy plan of care! Subjective: Seen DR happy with progress. Popping is normal healing. Tightness is at thie point.Recommended anti-inflammatory meloxicam/tramadol bicep pain okay to start this now better with healing.Oaky to use arm for yard work. today 12 weeks Objective/Function: PROM: shoulder flexion 148 degrees,abd 150 degrees,ER 65 DEGREES. MMT: RTC 4-/5 ,supraspiantous 3+/5,. AROM shoulder flexion 110 degrees Plan Plan: S/P SUBSCAPULARS AND SUPRASPINATOUS REPAIR AND TENOTOMY BICEPS 07/03/19 - 12weeks 09/25/19. SEE GUIDELINES FOR PROGRESSION RTC REPAIR WITH SUBSCAPULARIS REPAIRS. PROM/AAROM ,MANUAL THERAPY,CP/MHP,PROGRESS PHASE 2,PHASE 3 PER GUIDELINES Goals Goal 1:: Independant with HEP PROGRESSION. Goal Time Frame: 12-16 Weeks Goal Progress: Progressing Goal 2:: Patient to improve PROM shoulder flexion 140 degrees ,ER 30 DEGREES Goal Time Frame: 6-8 Weeks Goal Progress: Goal Met Goal 3:: Patient to increase AROM shoulder flexion 150,abd in scaption 145 degrees to improve function Goal Time Frame: 12-16 Weeks Goal Progress: Progressing Goal 4:: Patient increase strength of right shoulder RTC infraspinatous/subscapularis 4-/5,supraspinatous 4-/5 : 3+/5,deltoid 3+/5 to improve function with ADL'S Goal Time Frame: 12-16 Weeks Goal Progress: Progressing Goal 5:: Pateint increase quick dash by 20 ponts or > to improve QOL and function. Goal Time Frame: 12-16 Weeks Goal Progress: Progressing Goal 6:: Patient be able to return to ADLS' and housework tasks with min limitations. Goal Time Frame: 12-16 Weeks Goal Progress: Progressing Anticipated Interventions Patient/Client Instruction: Educate patient on: Condition, Plan of Care, Risk Factors For the Purpose of:: To decrease pain, To increase ROM, To improve muscle performance and motor function, To improve ability to perform ADL's, To increase tolerance to activity/condition/position, To improve performance and independence with ADL's, To improve ability of physical actions for home/community/work/leisure, To decrease soft tissue restriction, To increase flexibility/ROM, To assume or resume ADL's, To reduce risk of recurrence, To improve ability to perform tasks related to life management Therapeutic Exercise to Include: Strength training, Postural training, Passive ROM, Active ROM Comment: INTIAL PROM FLEXION .ER TP 30 DEGREES. RTC/DELTOID For the Purpose of:: To decrease pain, To increase ROM, To improve muscle performance and motor function, To improve ability to perform ADL's, To increase tolerance to activity/condition/position, To improve performance and independence with ADL's, To improve ability of physical actions for home/community/work/leisure, To improve gait and locomotor functions, To improve health of tissue, To decrease soft tissue restriction, To increase flexibility/ROM, To assume or resume ADL's, To improve ability to perform tasks related to life management Manual Therapy Techniques to Include: Mobilization, Passive ROM Comment: G-H MOBS/OSSILATION 1-3 For the Purpose of:: To decrease pain, To increase ROM, To improve nutrient delivery to tissue, To increase oxygenation perfusion, To improve health of tissue, To decrease soft tissue restriction, To increase flexibility/ROM TENS: Yes IF ES: Yes Cryotherapy (ice pack, ice massage): Yes Thermo therapy (hot pack): Yes For the Purpose of:: To decrease pain, To decrease swelling/inflammation, To improve health of tissue, To decrease soft tissue restriction Please do not hesitate to contact me at [phone] by phone or if you have questions or concerns regarding this new plan of care! Sincerely, Efren Hays, PT, Cert MDT, OCS
--- NOTE | 2019-10-28 11:54 | HP.PTREVAL_ITS ---
VONNIE Cavanaugh, It has been my pleasure to treat MARELY ZARAGOZA over the last 27 visits for S/P RIGHT SUBSCAPULARIS AND SUPRASPINATOUS REPAIR WITH BICEPS TENOTOMY. Please see the progress note below for an update on the physical therapy plan of care! Subjective: Worked alot this weekend in yard Objective/Function: CAROL [place] WELL --AROM STANDING FLEXION 120 degrees with substitution,PROM shoulder flexion 160 degrees ,abd 160 degrees ER 77 degrees. MMT: supraspinatous 3+/5,subscapularis 4/5,infraspinatous 4-/5. deltoid 3+/5. Will cont to benifit cont skilled PT to improve ROM/strength Plan Plan: CONT POC 2XWK FOR 4WEEKS. S/P SUBSCAPULARS AND SUPRASPINATOUS REPAIR AND TENOTOMY BICEPS 07/03/19 -15weeks 10/16/19. SEE GUIDELINES FOR PROGRESSION RTC REPAIR WITH SUBSCAPULARIS REPAIRS. PROM/AAROM ,MANUAL THERAPY,CP/MHP,PROGRESS PHASE 2,PHASE 3 PER GUIDELINES Goals Goal 1:: Independant with HEP PROGRESSION. Goal Time Frame: 12-16 Weeks Goal Progress: Progressing Goal 2:: Patient to improve PROM shoulder flexion 140 degrees ,ER 30 DEGREES Goal Time Frame: 6-8 Weeks Goal Progress: Goal Met Goal 3:: Patient to increase AROM shoulder flexion 150,abd in scaption 145 degrees to improve function Goal Time Frame: 12-16 Weeks Goal Progress: Progressing Goal 4:: Patient increase strength of right shoulder RTC infraspinatous/subscapularis 4-/5,supraspinatous 4-/5 : 3+/5,deltoid 3+/5 to improve function with ADL'S Goal Time Frame: 12-16 Weeks Goal Progress: Progressing Goal 5:: Pateint increase quick dash by 20 ponts or > to improve QOL and func tion. Goal Time Frame: 12-16 Weeks Goal Progress: Progressing Goal 6:: Patient be able to return to ADLS' and housework tasks with min limitations. Goal Time Frame: 12-16 Weeks Goal Progress: Progressing Anticipated Interventions Patient/Client Instruction: Educate patient on: Condition, Plan of Care, Risk Factors For the Purpose of:: To decrease pain, To increase ROM, To improve muscle performance and motor function, To improve ability to perform ADL's, To increase tolerance to activity/condition/position, To improve performance and independence with ADL's, To improve ability of physical actions for h ome/community/work/leisure, To decrease soft tissue restriction, To increase flexibility/ROM, To assume or resume ADL's, To reduce risk of recurrence, To improve ability to perform tasks related to life management Therapeutic Exercise to Include: Strength training, Postural training, Passive ROM, Active ROM Comment: INTIAL PROM FLEXION .ER TP 30 DEGREES. RTC/DELTOID For the Purpose of:: To decrease pain, To increase ROM, To improve muscle performance and motor function, To improve ability to perform ADL's, To increase tolerance to activity/condition/position, To improve performance and independence with ADL's, To improve ability of physical actions for home/community/work/leisure, To improve gait and locomotor functions, To improve health of tissue, To decrease soft tissue restriction, To increase flexibility/ROM, To assume or resume ADL's, To improve ability to perform tasks related to life management Manual Therapy Techniques to Include: Mobilization, Passive ROM Comment: G-H MOBS/OSSILATION 1-3 For the Purpose of:: To decrease pain, To increase ROM, To improve nutrient delivery to tissue, To increase oxygenation perfusion, To improve health of tissue, To decrease soft tissue restriction, To increase flexibility/ROM TENS: Yes IF ES: Yes Cryotherapy (ice pack, ice massage): Yes Thermo therapy (hot pack): Yes For the Purpose of:: To decrease pain, To decrease swelling/inflammation, To improve health of tissue, To decrease soft tissue restriction Please do not hesitate to contact me at [phone] by phone or if you have questions or concerns regarding this new plan of care! Sincerely, Efren Hays, PT, Cert MDT, OCS
--- NOTE | 2020-01-13 11:40 | HP.PTDCSUM_ITS ---
It has been my pleasure to treat MARELY ZARAGOZA referred by VONNIE Cavanaugh, with the diagnosis of S/P RIGHT SUBSCAPULARIS AND SUPRASPINATOUS REPAIR WITH BICEPS TENOTOMY for a total of 37 visit(s). Discharge Date: 01/13/20 Please see the following information for a summary of their discharge status. Subjective: Doing well.. Able to do all ADL'S some comming aross body ,occassional ache symptoms tp bicep Right Shoulder Pain Intensity (Out of 10): 0 % Improvement: 90 Objective/Function: POSTURE: mild foward postue. AROM: flexion 145 degrees,abd 135 in scaption,ER 80. IR L3. MMT: RTC 4/5 INFRASPINATOUS,SUBSCAPULARIS 4/5,SUPRASPINATOUS 4-/5.ANTERIOR DELTOD 4-/5,LATERAL 3+/5 Goal 1:: Independant with HEP PROGRESSION. Goal Progress: Progressing Goal 2:: Patient to improve PROM shoulder flexion 140 degrees ,ER 30 DEGREES Goal Progress: Goal Met Goal 3:: Patient to increase AROM shoulder flexion 150,abd in scaption 145 degrees to improve function Goal Progress: Progressing Goal 4:: Patient increase strength of right shoulder RTC infraspinatous/subscapularis 4-/5,supraspinatous 4-/5 : 3+/5,deltoid 3+/5 to improve function with ADL'S Goal Progress: Progressing Goal 5:: Pateint increase quick dash by 20 ponts or > to improve QOL and fun ction. Goal Progress: Progressing Goal 6:: Patient be able to return to ADLS' and housework tasks with min limitations. Goal Progress: Progressing Plan: RTD TO DR D/C Discharge Comments: d./c return to DR If there are questions or concerns regarding this patient's physical therapy, please feel free to call me at [phone]. Thank you for the referral of this patient. Sincerely, Efren Hays PT, Cert MDT, OCS
--- NOTE | 2020-01-15 10:52 | HP.PTREVAL_ITS ---
VONNIE Cavanaugh, It has been my pleasure to treat MARELY ZARAGOZA over the last 38 visits for S/P RIGHT SUBSCAPULARIS AND SUPRASPINATOUS REPAIR WITH BICEPS TENOTOMY. Please see the progress note below for an update on the physical therapy plan of care! Subjective: Seen DR wants to do Aquatic Therapy . Gave patient option of manipulation ,Return in to DR after Aquatic Objective/Function: POSTURE: mild foward postue. AROM: flexion 140 degrees,abd 135 in scaption,ER 80. IR L3. MMT: RTC 4/5 INFRASPINATOUS,SUBSCAPULARIS 4/5,MCCANN PRASPINATOUS 4-/5.ANTERIOR DELTOID 4-/5,LATERAL 3+/5 Plan Plan: S/P SUBSCAPULARS AND SUPRASPINATOUS REPAIR AND TENOTOMY BICEPS 07/03/19 -NO RESTRICTIONS. PT INTERVENTIONS AQUATIC THERAPY 2X/WEEK FOR 4 WEEKS FOCUSING ON ROM /FLEXABLITY AND STRENGTHENING RIGHT SHOULDER Goals Goal 1:: Independant with Aquatic PT program Goal Time Frame: 12-16 Weeks Goal Progress: Progressing Goal 2:: Patient to improve PROM shoulder flexion 140 degrees ,ER 30 DEGREES Goal Time Frame: 6-8 Weeks Goal Progress: Progressing Goal 3:: Patient to increase AROM shoulder flexion 150,abd in scaption 145 degrees to improve function Goal Time Frame: 12-16 Weeks Goal Progress: Progressing Goal 4:: Patient increase strength of right shoulder RTC infraspinatous/subscapularis 4-/5,supraspinatous 4-/5 : 3+/5,deltoid 3+/5 to improve function with ADL'S Goal Time Frame: 12-16 Weeks Goal Progress: Progressing Goal 5:: Pateint increase quick dash by 20 ponts or > to improve QOL and function. Goal Time Frame: 12-16 Weeks Goal Progress: Progressing Goal 6:: Patient be able to return to ADLS' and housework tasks with min limitations. Goal Time Frame: 12-16 Weeks Goal Progress: Progressing Anticipated Interventions Patient/Client Instruction: Educate patient on: Condition, Plan of Care, Risk Factors For the Purpose of:: To decrease pain, To increase ROM, To improve muscle performance and motor function, To improve ability to perform ADL's, To increase tolerance to activity/condition/position, To improve performance and independence with ADL's, To improve ability of physical actions for home/community/work/leisure, To decrease soft tissue restriction, To increase flexibility/ROM, To assume or resume ADL's, To reduce risk of recurrence, To improve ability to perform tasks related to life management Therapeutic Exercise to Include: Strength training, Postural training, In an aquatic setting, Passive ROM, Active ROM Comment: INTIAL PROM FLEXION .ER TP 30 DEGREES. RTC/DELTOID For the Purpose of:: To decrease pain, To increase ROM, To improve muscle performance and motor function, To improve ability to perform ADL's, To increase tolerance to activity/condition/position, To improve performance and independence with ADL's, To improve ability of physical actions for home/community/work/leisure, To improve gait and locomotor functions, To improve health of tissue, To decrease soft tissue restriction, To increase flexibility/ROM, To assume or resume ADL's, To improve ability to perform tasks related to life management Manual Therapy Techniques to Include: Mobilization, Passive ROM Comment: G-H MOBS/OSSILATION 1-3 For the Purpose of:: To decrease pain, To increase ROM, To improve nutrient delivery to tissue, To increase oxygenation perfusion, To improve health of tissue, To decrease soft tissue restriction, To increase flexibility/ROM TENS: Yes IF ES: Yes Cryotherapy (ice pack, ice massage): Yes Thermo therapy (hot pack): Yes For the Purpose of:: To decrease pain, To decrease swelling/inflammation, To improve health of tissue, To decrease soft tissue restriction Please do not hesitate to contact me at [phone] by phone or if you have questions or concerns regarding this new plan of care! Sincerely, Efren Hays, PT, Cert MDT, OCS
== END 2020-01-15 19:00 | disposition home or self-care (01) ==
LOC: PT 09:30
PROVIDERS: PCP Family Medicine; Referring Provider Physician Assistant; Visit Provider Physician Assistant
DX: Z98.890 Other specified postprocedural states (principal)
CPT/HCPCS: 97110; 97140; 97162; 97530

== ENCOUNTER 2020-02-18 12:30 | Outpatient (RCR) | payer MEDICARE, SELFPAY ==
[2020-01-14 13:02] VITALS: BMI 23.1
--- NOTE | 2020-02-18 12:56 | HP.PTDCSUM_ITS ---
It has been my pleasure to treat MARELY ZARAGOZA referred by Dr. Catherine Ramon DO, with the diagnosis of S/P RIGHT SUBSCAPULARIS AND SUPRASPINATOUS REPAIR WITH BICEPS TENOTOMY for a total of 47 visit(s). Discharge Date: Please see the following information for a summary of their discharge status. Subjective: Doing good able to do all ADL'S nd housework tasks RUE Pain Intensity (Out of 10): 2 % Improvement: 95 Objective/Function: POSTURE: rounded shoulders head foward. PALPATION: unremarkable. NEURO: intact. MMT: RTC 4/5 ,EXECEPT SUPRASPINATOUS 4- /5,ANTERIOR 4-/5,LATERAL 3+/5. AROM SHOULDER: FLEXION 150 DEGREES,ABD 150 ER 90 DEGREES,IR L2 Goal 1:: Patient be I with Aquatic therapy program Goal Progress: Goal Met Goal 2:: Patient increase AROM shoulder flexion 150 degrees,abd 140 degrees in scapation and across body and IR L1 to improve function Goal Progress: Goal Met Goal 3:: Patient to increase strength of right shoulder RTC 4/5 and deltoid 4-/5 to improve function Goal Progress: Goal Met Goal 4:: Patient to improve quick dash by 5 points to improve QOL Goal Progress: Goal Met Plan: D/C AND AQUATIC EX'S ON OWN If there are questions or concerns regarding this patient's physical therapy, please feel free to call me at [phone]. Thank you for the referral of this patient. Sincerely, Efren Hays, PT, Cert MDT, OCS
== END 2020-02-18 19:00 | disposition home or self-care (01) ==
LOC: PT 12:30
PROVIDERS: PCP Family Medicine; Referring Provider Orthopaedic Surgery; Visit Provider Orthopaedic Surgery
DX: Z98.890 Other specified postprocedural states (principal)
CPT/HCPCS: 97113; 97530

== ENCOUNTER → 2020-04-15 15:27 | Outpatient (CLI) | payer MEDICARE, SELFPAY ==
[2020-01-14 13:02] VITALS: BMI 23.1
[2020-04-15 17:28] LABS: Absolute Lymphocyte Count 2.17 X10^3/uL (0.83-4.51); Absolute Neutrophil Count 3.6 X10^3/uL (2.0-7.7); Basophil# 0.03 X10^3/uL; Basophil% 0.5 % (0-1); Eosinophil# 0.09 X10^3/uL; Eosinophils% 1.4 % (0-5); Hematocrit 40.1 % (37-47); Hemoglobin 12.9 g/dL (12.0-15.0); Lymphocyte # 2.17 X10^3/ul (4.0); Lymphocyte % 33.1 % (19-41); Mean Corp Hgb Conc 32.2 g/dL (32-36); Mean Corpuscular Volume 93.3 fL (81-99); Mean Platelet Vol. 9.8 fl (6.2-12.0); Monocyte# 0.61 X10^3/uL; Monocyte% 9.3 % (0-10); NRBC Flagged by Analyzer 0 % (0-5); Neutrophil # 3.64 X10^3/uL (2.7-7.7); Neutrophil % 55.4 % (47-70); Platelet Count 205 K/mm3 (150-450); RBC Distribution Width SD 41.2 fl (35.1-43.9); White Blood Count 6.6 K/mm3 (4.4-11.0)
[2020-04-15 18:10] LABS: CRP < 2.90 mg/L (0.0-3.0); Rheumatoid Factor < 10.0 IU/mL (<15); Uric Acid 4.9 mg/dL (2.6-6.0)
[2020-04-15 18:16] LABS: Erythrocyte Sedimentation Rate 6 mm/hr (0-30)
[2020-04-17 12:20] LABS: ANTINUCLEAR ANTIBODIES DIRECT Negative (Negative)
== END ==
PROVIDERS: PCP Family Medicine; Referring Provider Family Medicine; Visit Provider Family Medicine
DX: M25.50 Pain in unspecified joint (principal)
CPT/HCPCS: 36415; 84550; 85025; 85652; 86038; 86140; 86431

== ENCOUNTER → 2020-05-13 13:31 | Outpatient (CLI) | payer MEDICARE, SELFPAY ==
[2020-01-14 13:02] VITALS: BMI 23.1
--- NOTE | 2020-05-13 13:33 | BI_ITS ---
MAMMOGRAPHY - BILATERAL SCREENING REASON FOR EXAM: Female, 74 years old. Routine annual screening examination. PERTINENT HISTORY: Non-contributory. TECHNIQUE: Digital bilateral breast tolu (3D mammographic acquisition) in the CC and MLO projections. 2-D mediolateral oblique (MLO) and craniocaudad (CC) views of both breasts were obtained. CAD: Full Field Digital Mammography with Computer Added Detection was performed. COMPARISON: Comparison is made with prior study dated 04/30/2019 and 11/24/2017. FINDINGS: Breast Composition: The breasts are heterogeneously dense, which may obscure small masses. There are no dominant masses or suspicious calcifications. No other significant abnormalities are identified. There has been no significant change since the prior study. BI/SCREEN MAMM (CAD) W/TOLU BILAT IMPRESSION: Stable bilateral screening mammogram. Yearly follow-up mammogram recommended. (A) ASSESSMENT CATEGORY: BIRADS Category 1: Negative. A letter regarding these results will be sent to the patient by the facility within 30 days. Approximately 10% of breast cancers are not detected by mammography. A normal mammogram should not delay biopsy of a clinically suspicious abnormality. [id number] Electronically Signed: Tucker Kerr, at 14:24 EST , Service support ,
== END ==
PROVIDERS: PCP Family Medicine; Referring Provider Family Medicine; Visit Provider Family Medicine
DX: Z12.31 Encounter for screening mammogram for malignant neoplasm of breast (principal)
CPT/HCPCS: 77063; 77067

== ENCOUNTER 2021-08-02 14:54 | Outpatient (CLI) | payer MEDICARE, SELFPAY ==
[2021-08-02 17:57] LABS: Anion Gap 5 (5-15); BUN 14 mg/dL (7-18); BUN/Creat Ratio 20.8 RATIO (10-20); Calcium,Total 9.7 mg/dL (8.5-10.1); Chloride 101 mmol/L (98-107); Cholesterol 208 mg/dL (200); Creatinine, Serum 0.67 mg/dL (0.55-1.02); EST Glomerular Filtration Rate 91 mL/min (>60); Est Glom Filt Rate - Afr Amer 110 mL/min (>60); Glucose 95 mg/dL (74-106); High Density Lipoprotein 89 mg/dL; Sodium Level 135 mmol/L (136-145); Triglycerides 107 mg/dL; Very Low Density Lipoprotein 21 mg/dL (5-40)
== END 2021-08-02 23:59 | disposition home or self-care (01) ==
LOC: MFPLAB 14:55
PROVIDERS: PCP Family Medicine; Visit Provider Family Medicine
DX: Z00.00 Encounter for general adult medical examination without abnormal findings (principal)
CPT/HCPCS: 36415; 80048; 80061

== ENCOUNTER → 2022-10-17 | Outpatient (CLI) | payer MEDICARE, SELFPAY ==
--- NOTE | 2022-10-17 15:16 | RAD_ITS ---
STUDY: X-RAY - CERVICAL SPINE REASON FOR EXAM: Female, 77 years old. Neck pain and stiffness TECHNIQUE: 9 view(s) of the cervical spine were obtained. COMPARISON: None FINDINGS: Normal anterior atlantoaxial articulation. Normal odontoid process. There is straightening of the normal cervical lordosis. There is multi-level endplate spondylosis. There is multi-level degenerative disc disease with multilevel disc space narrowing. There is multi-level osseous foraminal stenosis. The soft tissue structures are unremarkable. No instability noted on the flexion or extension views. RAD/Cerv Spine Obl/Flex/Ext Comp IMPRESSION: Multilevel degenerative changes, no demonstrated fracture or instability, no interval change. Electronically Signed: Joe Lamas MD at 9:08 EDT ,
[2022-10-17 18:24] LABS: Vitamin D,25 Hydroxy 67.7 ng/mL
[2022-10-17 18:38] LABS: ALB/GLOB Ratio 1.2 RATIO (0.9-2.4); AST(SGOT) 31 U/L (15-37); Alanine Aminotransfer ALT/SGPT 39 U/L (13-56); Albumin, Serum 3.8 g/dL (3.2-5.0); Alkaline Phosphatase 64 U/L (45-117); Anion Gap 3 (5-15); BUN 10 mg/dL (7-18); BUN/Creat Ratio 13.5 RATIO (10-20); Calcium,Total 9.3 mg/dL (8.5-10.1); Chloride 105 mmol/L (98-107); Cholesterol 219 mg/dL (200); Creatinine, Serum 0.74 mg/dL (0.55-1.02); EST Glomerular Filtration Rate 81 mL/min (>60); Est Glom Filt Rate - Afr Amer 98 mL/min (>60); Globulin 3.3 g/dL (2.2-4.2); Glucose 108 mg/dL (74-106); High Density Lipoprotein 84 mg/dL; Potassium 3.8 mmol/L (3.5-5.1); Protein, Total 7.1 g/dL (6.4-8.2); Sodium Level 137 mmol/L (136-145); Triglycerides 125 mg/dL; Very Low Density Lipoprotein 25 mg/dL (5-40)
== END | disposition home or self-care (01) ==
LOC: MTLAB 15:14
PROVIDERS: PCP Family Medicine; Referring Provider Family Medicine; Visit Provider Family Medicine
DX: Z00.00 Encounter for general adult medical examination without abnormal findings (principal); E55.9 Vitamin D deficiency, unspecified; N95.9 Unspecified menopausal and perimenopausal disorder; M54.2 Cervicalgia; Z12.31 Encounter for screening mammogram for malignant neoplasm of breast; Z79.899 Other long term (current) drug therapy
CPT/HCPCS: 36415; 72052; 80053; 80061; 82306

== ENCOUNTER → 2022-11-03 | Outpatient (CLI) | payer MEDICARE, SELFPAY ==
--- NOTE | 2022-11-03 15:18 | BI_ITS ---
MAMMOGRAPHY - BILATERAL SCREENING REASON FOR EXAM: Female, 77 years old. Routine annual screening examination. PERTINENT HISTORY: Non-contributory. TECHNIQUE: Digital bilateral breast tolu (3D mammographic acquisition) in the CC and MLO projections. 2-D mediolateral oblique (MLO) and craniocaudad (CC) views of both breasts were obtained. CAD: Full Field Digital Mammography with Computer Added Detection was performed. COMPARISON: Screening mammogram from 05/13/2020, 04/30/2019. FINDINGS: Breast Composition: The breasts are heterogeneously dense, which may obscure small masses. There are no dominant masses or suspicious calcifications. No other significant abnormalities are identified. There has been no significant change since the prior study. BI/SCRN MAMM (CAD)W/TOLU BILAT IMPRESSION: Stable bilateral screening mammogram. Yearly follow-up mammogram recommended. (A) ASSESSMENT CATEGORY: BIRADS Category 2: Benign. A letter regarding these results will be sent to the patient by the facility within 30 days. Approximately 10% of breast cancers are not detected by mammography. A normal mammogram should not delay biopsy of a clinically suspicious abnormality. Electronically Signed: Shaun Morales DO at 14:40 EDT ,
--- NOTE | 2022-11-03 15:25 | BD_ITS ---
STUDY: DUAL ENERGY X-RAY ABSORPTIOMETRY / DXA REASON FOR EXAM: Female, 77 years old. [id number] TECHNIQUE: Bone Mineral Density (BMD) measurements of lumbar spine and bilateral hips were obtained. COMPARISON: Comparison is made with prior study dated April 30, 2019. FINDINGS: Lumbar Spine (L1-L4): g/cm2 (0.916) / T-score (-0.9) / Z-score (1.4) Findings are suggestive of normal bone density with a low fracture risk. Left Femur Total: g/cm2 (0.943) / T-score (0.0) / Z-score (1.8) Left Femoral Neck: g/cm2 (0.773) / T-score (-0.7) / Z-score (1.4) Right Femur Total: g/cm2 (0.929) / T-score (-0.1) / Z-score (1.7) Right Femoral Neck: g/cm2 (0.753) / T-score (-0.9) / Z-score (1.2) The T-Scores on the most recent prior examination were: Lumbar Spine (L1-L4): There has been worsening of bone density since the previous examination. Left Femur Total: which represents a worsening of 4.2%. Right Femur Total: which represents a worsening of 5.1%. BD/Dexa Bone Density Study IMPRESSION: The patient is considered normal as outlined below according to World [place] Organization (WHO) criteria with a low fracture risk. There has been worsening of bone density since the previous examination. Reference Information: The T-score is the number of standard deviations above or below the standard which is normal for young adults at their peak bone mineral density. The World Health Organization (WHO) interprets the T-scores as follows: Above -1 Normal bone density Between -1 and -2.5 Osteopenia Equal to / or below -2.5 Osteoporosis As a practical clinical guideline, osteopenia may be graded as follows: Mild -1 through -1.5 Moderate -1.6 through -2.0 Severe -2.1 through -2.4 The Z-score is the number of standard deviations above or below age-matched controls. A Z-score of less than -1.5 would be considered abnormal. References: 1. NIH Osteoporosis and Related Bone Diseases www osteo.org 2. International Society for Clinical Densitometry www iscd.org 3. National Osteoporosis Foundation www nof.org Electronically Signed: Tucker Kerr MD at 14:00 EDT ,
== END | disposition home or self-care (01) ==
LOC: OPBD 15:17
PROVIDERS: PCP Family Medicine; Referring Provider Family Medicine; Visit Provider Family Medicine
DX: Z12.31 Encounter for screening mammogram for malignant neoplasm of breast (principal); N95.9 Unspecified menopausal and perimenopausal disorder
CPT/HCPCS: 77063; 77067; 77080

== ENCOUNTER → 2023-07-27 | Outpatient (CLI) | payer MEDICARE, SELFPAY ==
--- OUTSIDE RECORDS SUMMARY | 2023-07-27 20:15 | XMS RPT_ITS | CCD ---
Author Name Unknown Address [address] [place] [address] Organization [facility] Care Team Providers Care Digital Media Director Name Role Phone Shellie Kohli N Unavailable Jelena Kohliica N Unavailable Jelena Kohliica N Unavailable Jelena Kohliica N Unavailable Jelena Kohliica N Unavailable Catherine Ramon Unavailable [phone] Allergies Allergy Classification Reported Allergen(s) Allergy Type Date of Onset Reaction(s) Facility (8 sources) apis mellifera venom; Translations: [BEE STINGS] allergy to substance swelling, hives [facility] Work Phone: (8 sources) Penicillins (Antibiotic) drug allergy 2 redness, swelling [facility] Work Phone: Medications Completed/Discontinued Medications Medication Drug Class(es) Dates Sig (Normalized) Sig (Original) aspirin 81 mg oral tablet (8 sources) Nonsteroidal Anti-inflammatory Drug Start: 09-06-2011 take 1 tablet by mouth once daily ASPIRIN 81 MG TABS One tablet by mouth daily ASPIRIN [id number] Catherine Ramon Problems Active Problems Problem Classification Problem Date Documented Date Episodic/Chronic Other nervous system disorders (8 sources) Carpal tunnel syndrome; Translations: [Carpal tunnel syndrome, right upper limb] Onset: 12-27-2016 12-27-2016 Chronic Unclassified (2 sources) Postoperative physical examination; Translations: [Encounter for other specified surgical aftercare] Onset: 01-31-2017 01-31-2017 Past or Other Problems Problem Classification Problem Date Documented Da te Episodic/Chronic Joint disorders and dislocations; trauma-related (16 sources) Tear of medial meniscus of knee; Translations: [Tear of lateral meniscus of knee] Onset: 09-06-2011 11-02-2011 Episodic Other aftercare (2 sources) Encounter for other specified surgical aftercare; Translations: [Encounter for other specified surgical aftercare] Onset: 01-31-2017 01-31-2017 Episodic Other connective tissue disease (16 sources) Prepatellar bursitis; Translations: [Synovial plica of knee] Onset: 10-01-2015 10-01-2015 Episodic Other non-traumatic joint disorders (8 sources) Knee pain; Translations: [Pain in left knee] Onset: 09-06-2011 09-07-2011 Episodic Superficial injury; contusion (16 sources) Other injury of unspecified body region; Translations: [Contusion of unspecified knee, initial encounter] Onset: 10-01-2015 10-15-2015 Episodic Results Test Name Value Interpretation Reference Range Facil ity Vital Signs Date Time Vital Sign Value Performing Clinician Naz mars 11-28-2011 10:34-0400 BP Diastolic 79 mm[Hg] [facility] Work [facility]: 11-28-2011 10:34-0400 BP Systolic 132 mm[Hg] [facility] Work Phone: 11-28-2011 10:34-0400 Pulse (Heart Rate) 58 /min [facility] Work Phone: 11-28-2011 10:34-0400 Weight 50.8 kg [facility] Work Phone: 09-06-2011 15:11-0400 Height 158.75 cm [facility] Work Phone: Plan of Treatment Date Care Activity Detail Author Start: 03-02-2017 End: 03-02-[address] [facility] Work Phone: Start: 01-31-2017 End: 01-31-2017 Appointment Appointment [facility] Work Phone: Start: 01-18-2017 End: 01-18-2017 Appointment Appointment [facility] Work Phone: Start: 12-27-2016 End: 12-27-2016 Appointment Appointment [facility] Work Phone: Start: 10-01-2015 End: 10-01-2015 Radiologic exam knee complete 4/more views X-Ray, Knee [facility] Work Phone: Start: 10-01-2015 End: 10-01-2015 X-ray exam, knee, 4 or more X-Ray, Knee [facility] Work Phone: Additional Source Comments FOR RECORDS PERTAINING TO PATIENTS WHO ARE OR HAVE BEEN ENROLLED IN A CHEMICAL DEPENDENCY/SUBSTANCEABUSE PROGRAM, SOME INFORMATION MAY BE OMITTED. This clinical summary was aggregated from multiple sources. Caution should be exercised in using it in the provision of clinical care. This summary normalizes information from multiple sources, and as a consequence, information in this document may materially change the coding, format and clinical context of patient data. In addition, data may be omitted in some cases. CLINICAL DECISIONS SHOULD BE BASED ON THE PRIMARY CLINICAL RECORDS. [employer] [facility]. provides no warranty or guarantee of the accuracy or completeness of information in this document.
== END | disposition home or self-care (01) ==
PROVIDERS: PCP Family Medicine; Referring Provider Physician Assistant Surgical; Visit Provider Physician Assistant Surgical
DX: R30.0 Dysuria (principal)
CPT/HCPCS: 87077; 87086; 87088; 87186

== ENCOUNTER → 2023-11-04 | Outpatient (CLI) | payer MEDICARE, SELFPAY ==
--- NOTE | 2023-11-04 08:41 | MRI_ITS ---
STUDY: MRI LEFT SHOULDER REASON FOR EXAM: Female, 78 years old. rule out cuff tear TECHNIQUE: Standardized fat and water weighted pulse sequences were obtained in all 3 orthogonal planes. COMPARISON: X-ray of the left shoulder dated October 23, 2023 FINDINGS: Redemonstration of small to moderate-sized calcifications at the supraspinatus insertion site consistent with calcific tendinitis. The supraspinatus tendon is moderately thickened with increased signal consistent with tendinosis. In addition a small near full-thickness primarily bursal surface tear is present at the far lateral insertion site on the greater tuberosity that measures 3.2 mm in diameter, see image 13/20 series 5. A small to moderate size glenohumeral joint effusion is present as well. There is infraspinatus tendinosis with tendon attrition, but without a demonstrated infraspinatus tendon tear. Normal subscapularis tendon. Normal teres minor tendon. Normal supraspinatus muscle. Normal infraspinatus muscle. Normal subscapularis muscle. Normal teres minor muscle. Normal glenohumeral articulation. Normal humeral head and visualized proximal humerus. Normal biceps labral complex. The intracapsular aspect elongated biceps tendon is moderately thickened with increased central signal due to tendinosis. No full-thickness tear is present. Normal labrum. Normal capsulo- ligamentous complex. Normal rotator interval. There is mild osteoarthritis of the acromioclavicular articulation. There is a Type II morphology (curved), with a neutral orientation. There is no subacromial-subdeltoid bursal fluid. Normal visualized coracohumeral and coracoacromial ligaments. Normal quadrilateral space. Normal axillary space. Normal deltoid muscle. Normal trapezius muscle. MRI/Upper Ext Joint Only(Routine) IMPRESSION: 1. Redemonstration of small to moderate-sized calcifications at the supraspinatus insertion site consistent with calcific tendinitis. The supraspinatus tendon is moderately thickened with increased signal consistent with tendinosis. In addition a small near full-thickness primarily bursal surface tear is present at the far lateral insertion site on the greater tuberosity that measures 3.2 mm in diameter, see image 13/20 series 5. A small to moderate size glenohumeral joint effusion is present as well. 2. Moderate biceps tendinosis Electronically Signed: Antonio Dutta MD at 16:04 EDT ,
== END | disposition home or self-care (01) ==
PROVIDERS: PCP Family Medicine; Referring Provider Orthopaedic Surgery Sports Medicine; Visit Provider Orthopaedic Surgery Sports Medicine
DX: M75.32 Calcific tendinitis of left shoulder (principal)
CPT/HCPCS: 73221

== ENCOUNTER → 2023-12-12 | Outpatient (CLI) | payer MEDICARE, SELFPAY ==
[2023-12-12 12:24] LABS: ALB/GLOB Ratio 1.2 RATIO (0.9-2.4); AST(SGOT) 21 U/L (15-37); Alanine Aminotransfer ALT/SGPT 36 U/L (13-56); Albumin, Serum 3.6 g/dL (3.2-5.0); Alkaline Phosphatase 57 U/L (45-117); Anion Gap 5 (5-15); BUN 15 mg/dL (7-18); BUN/Creat Ratio 20.4 RATIO (10-20); Calcium,Total 9.1 mg/dL (8.5-10.1); Chloride 100 mmol/L (98-107); Creatinine, Serum 0.74 mg/dL (0.55-1.02); EST Glomerular Filtration Rate 81 mL/min (>60); Est Glom Filt Rate - Afr Amer 99 mL/min (>60); Globulin 3.1 g/dL (2.2-4.2); Glucose 106 mg/dL (74-106); Magnesium 2.1 mg/dL (1.6-2.6); Potassium 4.8 mmol/L (3.5-5.1); Protein, Total 6.7 g/dL (6.4-8.2); Sodium Level 135 mmol/L (136-145)
[2023-12-14 13:28] LABS: Vitamin D,25 Hydroxy 59.4 ng/mL
== END | disposition home or self-care (01) ==
LOC: MFPLAB 10:12
PROVIDERS: PCP Family Medicine; Visit Provider Family Medicine
DX: G47.62 Sleep related leg cramps (principal); E55.9 Vitamin D deficiency, unspecified
CPT/HCPCS: 36415; 80053; 82306; 83735; 84443

== ENCOUNTER → 2023-12-27 | Outpatient (CLI) | payer MEDICARE, SELFPAY ==
--- NOTE | 2023-12-27 12:40 | BI_ITS ---
MAMMOGRAPHY - BILATERAL SCREENING REASON FOR EXAM: Female, 78 years old. Routine annual screening examination. PERTINENT HISTORY: Non-contributory. TECHNIQUE: Digital bilateral breast tolu (3D mammographic acquisition) in the CC and MLO projections. 2-D mediolateral oblique (MLO) and craniocaudad (CC) views of both breasts were obtained. CAD: Full Field Digital Mammography with Computer Added Detection was performed. COMPARISON: Comparison is made with prior study November 03, 2022 and May 13, 2020. FINDINGS: Breast Composition: The breasts are heterogeneously dense, which may obscure small masses. There are no dominant masses or suspicious calcifications. No other significant abnormalities are identified. There has been no significant change since the prior study. BI/SCRN MAMM (CAD)W/TOLU BILAT IMPRESSION: Stable bilateral screening mammogram. Yearly follow-up mammogram recommended. (A) ASSESSMENT CATEGORY: BIRADS Category 1: Negative. A letter regarding these results will be sent to the patient by the facility within 30 days. Approximately 10% of breast cancers are not detected by mammography. A normal mammogram should not delay biopsy of a clinically suspicious abnormality. [id number] Electronically Signed: Tucker Kerr MD at 14:10 EDT ,
== END | disposition home or self-care (01) ==
LOC: OPBI 12:40
PROVIDERS: PCP Family Medicine; Referring Provider Family Medicine; Visit Provider Family Medicine
DX: Z12.31 Encounter for screening mammogram for malignant neoplasm of breast (principal)
CPT/HCPCS: 77063; 77067

== ENCOUNTER 2024-02-06 09:23 | Day surgery (SDC) | payer MEDICARE, SELFPAY ==
[2024-02-06] VITALS (9 sets, daily range): BP systolic 100–136; BP diastolic 60–76; PULSE 59–78; RESP 16; TEMP 36.5–37.2; O2SAT 99–100; BMI 23.8
[2024-02-06] MEDS: Lactated Ringers 1,000 ML 15 ML IV (09:48)
--- NOTE | 2024-02-06 09:53 | PRE.ANES_ITS ---
ASA Classification* ASA Classification ASA Classification: 2 Assessment & Plan Anesthesia* Anesthesia Assessment Anesthesia Assessment: Discussed sedation and/or anesthesia options, risks, benefits, and alternatives with patient/parents/legal guardian/POA. Questions invited. The patient/parents/legal guardian/POA seems to understand and agrees to proceed with anesthesia plan. Reviewed the physical assessment, medical history, allergy history and patient home medications list prior to surgery/procedure/anesthetic and documented any changes. Performed airway and anesthesia risk assessments. Anesthesia Type Anesthesia Type: MAC Anesthesia Focused Assessment* Temperature: 99 F Pulse Rate: 78 Blood Pressure: 134/76 Respiratory Rate: 16 Pulse Ox: 100 Airway Assessment Mouth opens: >3 cm Mallampati Score: II Focused Labs Anesthesia Preop lab: CBC WBC 6.6 K/mm3 (4.4-11.0) 04/15/20 15:30 RBC 4.30 M/mm3 (4.2-5.4) 04/15/20 15:30 Hgb 12.9 g/dL (12.0-15.0) 04/15/20 15:30 Hct 40.1 % (37-47) 04/15/20 15:30 Plt Count 205 K/mm3 (150-450) 04/15/20 15:30 CHEMISTRY Potassium 4.8 mmol/L (3.5-5.1) 12/12/23 10:20 Sodium 135 mmol/L (136-145) L 12/12/23 10:20 Magnesium 2.1 mg/dL (1.6-2.6) 12/12/23 10:20 BUN 15 mg/dL (7-18) 12/12/23 10:20 Creatinine 0.74 mg/dL (0.55-1.02) 12/12/23 10:20 Glucose 106 mg/dL (74-106) 12/12/23 10:20 TSH 1.00 uIU/mL (0.358-3.74) 12/12/23 10:20 COAG Pre-Assessment Diagnosis/Proposed Procedure Planned Operative Procedure(s): CSCOPE Anesthesia History Anesthesia History - coffee sommelier: Anesthesia History - coffee sommelier Hx Hospitalization No 02/02/24 10:04 Any Problems With Anesthesia No 02/02/24 10:04 Cholinesterase deficiency No 02/02/24 10:04 You/Your Family Experience No 02/02/24 10:04 fever (hyperthermia) with Relationship Recent Exposure to Contagious No 02/06/24 09:44 Disease Does patient have nerve No 02/02/24 10:04 stimulator Patient instructed to have device shut off --Does patient have Pacemaker No 02/06/24 09:44 or ICD? When Was Last Pacemaker Check QUESTION #4 FULL TEXT: You/Your Family Experience fever (hyperthermia) with Anesthesia Last Oral Intake Last Oral intake: Last Oral Intake NPO since 19:30 02/06/24 09:44 Meds taken in AM with sips of No 02/06/24 09:44 water? Meds patient instructed to take am of surgery PONV PONV - coffee sommelier: PONV - coffee sommelier Female Yes 02/02/24 10:04 HX of Motion Sickness No 02/02/24 10:04 HX of N/V After Surgery No 02/02/24 10:04 Non-Smoker Yes 02/02/24 10:04 Duration of Surgery greater No 02/02/24 10:04 than 60 minutes Number of Risk Factors 2 02/02/24 10:04 PONV Score Moderate Risk 02/02/24 10:04 Height & Weight Height & Weight: Anesthesia: Height & Weight Height 5 ft 2 in 02/06/24 09:44 Weight: 59 kg 02/06/24 09:44 Body Mass Index (BMI) 23.8 02/06/24 09:44 Respiratory Assessment Respiratory Assessment - coffee sommelier: Respiratory Tract Infection Hx - coffee sommelier Hx Respiratory Tract Infection Yes: BRONCHITIS/TREATED/ 02/02/24 10:04 RESOLVED STOP Sleep Apnea STOP Sleep Apnea - coffee sommelier: STOP Sleep Apnea - coffee sommelier Hx Hypertension No 02/02/24 10:04 Hx Sleep Apnea No 02/02/24 10:04 CPAP No 10/16/23 09:40 BIPAP Do you snore loudly (louder No 02/02/24 10:04 than talking or can be heard Do you often feel tired/ No 02/02/24 10:04 fatigued/ sleepy during daytime? Has anyone observed you stop No 02/02/24 10:04 breathing during sleep? STOP Results Negative 02/02/24 10:04 QUESTION #5 FULL TEXT : Do you snore loudly (louder than talking or can be heard through closed doors)? Tobacco Use History Tobacco Use History - coffee sommelier: Tobacco Use History - coffee sommelier Tobacco Use Smoking Status Never smoker 02/02/24 10:04 Hx Tobacco Use No 02/02/24 10:04 Years Smoking Packs Smoked per Day Smoking Cessation Date was within the last 15 years Hx Smoking Cessation Date Hx Smoking Cessation Counseling Hematologic Medial History Hematologic Hx - coffee sommelier: Hematologic Medical Hx - well driller helper Hx of Blood Transfusion No 02/02/24 10:04 Hx of Transfusion in last 3 No 02/02/24 10:04 Months Date of Last Transfusion (if within last 3 months) Ever experience any problems No 02/02/24 10:04 with transfusion(s)? Specify any problems Hx of Preganancy in last 3 No 02/02/24 10:04 Months Nurse Filling Out Transfusion DSCHRIBER 02/02/24 10:04 & Questions: Date: 02/02/24 02/02/24 10:04 Time: 10:05 02/02/24 10:04 Patient unable to answer at this time (ie. confused, unrespo /Reproduction History /Reproductive History - coffee sommelier: /Reproductive Hx- coffee sommelier Hx Now No 02/02/24 10:04 Gestational Age (in weeks): EDC: Hx Hx Para Hx Section SAB No 02/02/24 10:04 Active Medications Active Medications: Current Medications Generic Name Dose Route Start Last Admin Trade Name Freq PRN Reason Stop Dose Admin Lactated Ringer's 1,000 mls @ 15 mls/hr 02/06/24 09:30 02/06/24 09:48 IV 15 mls/hr .Q48H TANYA Administration PFSH Medical History (Updated 02/02/24 @ 10:11 by Radha Rossi) Wears glasses Post-menopausal Alcohol use Arthritis Low iron Heartburn Non-smoker Leg cramps History of edema MVP (mitral valve prolapse) Left rotator cuff tear Calcific tendinitis of left shoulder Left shoulder pain Home Medications ?Medication ?Instructions ?Recorded ?Last Taken ?Type propranolol 10 mg tablet 10 mg PO DAILY MVP 01/11/17 02/06/24 History cholecalciferol (vitamin D3) 25 25 mcg PO DAILY 02/02/24 02/05/24 History mcg (1,000 unit) capsule (Vitamin D3) multivitamin (Daily Multi-Vitamin 1 tab PO DAILY 02/02/24 02/05/24 History tablet) niacin 500 mg tablet 500 mg PO DAILY 02/02/24 02/05/24 History Allergy/AdvReac Type Severity Reaction Status Date / Time bee pollen Allergy Anaphylaxis Verified 02/06/24 09:43 benzocaine Allergy Hives Verified 02/06/24 09:43 Penicillins (PCN) Allergy Hives Verified 02/06/24 09:43 Surgical History (Updated 02/02/24 @ 10:11 by Radha Rossi) Hx of colonoscopy Hx of varicose vein ligation and stripping History of carpal tunnel surgery of right wrist Hx of oophorectomy Hx of tubal ligation Hx of arthroscopic knee surgery Hx of lumbar discectomy h/o right RTC repair Social History (Updated 01/01/24 @ 12:59 by Debbi Rosado LPN) Smoking Status: Never smoker alcohol intake: current alcohol intake frequency: holidays/special occasions only Alcohol type: wine substance use type: does not use Review of Systems (Anesthesia) ROS Narrative System reviewed and no additional complaints, except as documented.
--- NOTE | 2024-02-06 10:05 | PCM.HP.BLA ---
History and Physical Date of Admission: 02/06/24 Intake Vital Signs 10/15/2408:40 01/01/2412:59 Height 5 ft 2 in 5 ft 2 in Weight: 134 lb 4 oz BMI 24.5 BP 150/77 H Blood Pressure Location Rt brachial Position Sitting Respiration 18 Pulse 67 Pulse Source Monitor Temp 97.2 F L Temp Source Temporal Pulse Oximetry (%) 97 Oxygen Delivery Method room air Intake Visit Reasons: COLONOSCOPY Chief Complaint: colonoscopy Is patient in pain?: No Allergies bee pollen Allergy (Verified 01/01/24 12:59) Anaphylaxisbenzocaine Allergy (Verified 01/01/24 12:59) HivesPenicillins (PCN) Allergy (Verified 01/01/24 12:59) Hives Medications ?Medication ?Instructions ?Recorded ?Confirmed ?Type propranolol 10 mg tablet 10 mg PO DAILY MVP 01/11/17 01/01/24 History Have you fallen in the past year?: No PFSH Medical History Left rotator cuff tear Calcific tendinitis of left shoulder Left shoulder pain Surgical History h/o right RTC repair Social History (Updated 01/01/24 @ 12:59 by Debbi Rosado LPN) Smoking Status: Never smoker alcohol intake: current alcohol intake frequency: holidays/special occasions only Alcohol type: wine substance use type: does not use HPI HPI HPI: Patient is a 78-year-old female here for screening colonoscopy. Her last colonoscopy was 10 years ago and was normal. She denies any abdominal pain or blood in the stool. She denies family history of colon cancer. ROS General General: No weight change, appetite, fatigue, colon cancer, breast cancer or weakness HEENT HEENT: No difficulty swallowing, eye injury, eye surgery, swollen glands or hoarseness Endo Endocrine: No thyroid disease, diabetes mellitus, thyroid cancer, Hair loss, heat intolerance or cold intolerance Skin Skin: No rash or changing moles Musc Musculoskeletal: No back problems, arthritis, rheumatoid arthritis, gout or joint pain Cardio Cardiovascular: No murmur, pacemaker, heart disease, atrial fibrillation, high blood pressure, heart attack, heart stent, palpitations, shortness of breat with exertion or chest pain Psych Psychiatric: No depression, anxiety or hearing voices Resp Respiratory: No shortness of breath, No sleep apnea, No cough, No COPD, No asthma, No emphysema and No wheezing Gastro Gastrointestinal: No abdominal pain, No nausea or vomiting, No diarrhea, No constipation, No blood in stool, No acid reflux, No hemorrhoids, No ulcers, No gallbladder problem and No black,tarry stools Dex Hematologic: No blood thinners, No blood disorders, No bleeding, No anemia and No blood clots Neuro Neurologic: No numbness, No tingling and No weakness Exam Const General: cooperative Orientation: alert and oriented x3 HENMT Head: normal to inspection Neck Neck: normal visual inspection and full ROM Chest Chest palpation & inspection: normal inspection of the chest Resp Effort & Inspection: normal respiratory effort Auscultation: clear to auscultation bilaterally Cardio Rate: regular rate Rhythm: regular rhythm GI Inspection: non-distended Palpation: soft and nontender Skin General: no rashes or lesions noted Neuro General: patient alert and patient oriented x3 Extrem General: full ROM Psych Appearance: grossly normal Mental Status: mental status grossly normal Assessment and Plan Assessment and Plan (1) Screen for colon cancer: Status: Acute Plan: The patient seems to still be in very good health and I would recommend that she have another screening colonoscopy. I discussed this with her in detail. I explained endoscopy in detail to the patient. I explained the risks including but not limited to stroke or heart attack with anesthesia, perforation of the GI tract, bleeding, infection. I explained that any of these could necessitate further emergency surgery. The patient understands and all questions were answered sufficiently. The patient wishes to proceed with procedure. Brian Macias MD Pager: [facility] [address] [place] [address], [address] [place] [address] Office: I have examined the patient and the H&P has been reviewed. There are no clinical changes since date of exam.
--- NOTE | 2024-02-06 10:40 | OP.CCLET_ITS ---
02/06/2024 Jen Poon [address] [place] [address] Re : Colonoscopy procedure for Kenya Villalpando Dear Dr. Poon This procedure was performed on Tuesday, February 06, 2024. My impressions and recommendations are as follows: Impressions : - The entire examined colon is normal on direct and retroflexion views. - No specimens collected. Recommendations : - Discharge patient to home. - Resume previous diet. - Continue present medications. - Repeat colonoscopy is not recommended due to current age (66 years or older) for screening purposes. My findings are described in the full procedure note, which is enclosed. If I can be of further assistance, please feel free to contact me at Doctor phone number(s): , Work: . Sincerely, Brian Macias MD 02/06/2024 10:40:34 AM This report has been signed electronically.
--- NOTE | 2024-02-06 10:40 | OP.COLON_ITS ---
Patient Name: Kenya Villalpando Procedure Date: 02/06/2024 10:10 AM Date of : 1945 Age: 78 Procedure: Colonoscopy Indications: Screening for colorectal malignant neoplasm Providers: Brian Macias MD Medicines: Propofol per Anesthesia Patient Profile: This is a 78 year old female. Refer to note in patient chart for documentation of history and physical. Last Colonoscopy: 10 years ago. Complications: No immediate complications. Procedure: Pre-Anesthesia Assessment: - Prior to the procedure, a History and Physical was performed, and patient medications and allergies were reviewed. The patient's tolerance of previous anesthesia was also reviewed. The risks and benefits of the procedure and the sedation options and risks were discussed with the patient. All questions were answered, and informed consent was obtained. Prior Anticoagulants: The patient has taken no anticoagulant or antiplatelet agents. After reviewing the risks and benefits, the patient was deemed in satisfactory condition to undergo the procedure. After I obtained informed consent, the scope was passed under direct vision. Throughout the procedure, the patient's blood pressure, pulse, and oxygen saturations were monitored continuously. The Colonoscope was introduced through the anus and advanced to the cecum, identified by appendiceal orifice and ileocecal valve. The colonoscopy was performed without difficulty. The patient tolerated the procedure well. The quality of the bowel preparation was good. The ileocecal valve, appendiceal orifice, and rectum were photographed. Scope In: 10:28:02 AM Scope Withdrawal Time 0 hours 3 minutes 41 seconds Scope Out: 10:38:38 AM Total Procedure Duration Time 0 hours 10 minutes 36 seconds Findings: The entire examined colon appeared normal on direct and retroflexion views. Impression: - The entire examined colon is normal on direct and retroflexion views. - No specimens collected. Recommendation: - Discharge patient to home. - Resume previous diet. - Continue present medications. - Repeat colonoscopy is not recommended due to current age (66 years or older) for screening purposes. Procedure Code(s): --- Professional --- 42419, Colonoscopy, flexible; diagnostic, including collection of specimen(s) by brushing or washing, when performed (separate procedure) Diagnosis Code(s): --- Professional --- Z12.11, Encounter for screening for malignant neoplasm of colon CPT copyright 2021 [employer]. All rights reserved. The codes documented in this report are preliminary and upon vacuum frame operator review may be revised to meet current compliance requirements. Brian Macias MD 02/06/2024 10:40:34 AM This report has been signed electronically. Number of Addenda: 0 Note Initiated On: 02/06/2024 10:10 AM
--- NOTE | 2024-02-06 10:50 | PCM.POST.ANE ---
Anesthesia: Postop Eval I Current Vital Signs Temperature: 97.8 F Pulse Rate: 65 Blood Pressure: 100/63 Respiratory Rate: 16 Pulse Ox: 99 Oxygen Delivery Method: Room Air Assessment Airway patent: Yes Spontaneous unlabored respirations: Yes Mental status: Awake and Calm nausea: No Vomiting: No Anesthesia Complication: No Fluid Hydration Crystalloid volume administer (ml): 400 Total IV fluid infused: 400 Progress Note Anesthesia document: Postop Eval 1 completed: Yes
--- NOTE | 2024-02-06 11:30 | POSTOPAN2_ITS ---
Anesthesia Postop Eval I Sum Postop Eval Completion status Anesthesia document: Postop Eval 1 completed: Yes Anesthesia Postop Eval I Summary Anesthesia Postop Eval I Summary: Anesthesia Postop Eval I: Assessment Summary Airway patent Yes 02/06/24 10:51 QUALITY CONTROL TESTER.[email or web address] Spontaneous unlabored Yes 02/06/24 10:51 QUALITY CONTROL TESTER.GDOTT respirations Mental status Awake,Calm 02/06/24 10:51 QUALITY CONTROL TESTER.GDOTT nausea No 02/06/24 10:51 QUALITY CONTROL TESTER.GDOTT Vomiting No 02/06/24 10:51 QUALITY CONTROL TESTER.GDOTT Anesthesia Postop Eval I: Fluid Summary Crystalloid volume administer 400 02/06/24 10:51 QUALITY CONTROL TESTER.GDOTT (ml) Colloids volume administered ( ml) Blood Product volume administered (ml) Total IV fluid infused 400 02/06/24 10:51 QUALITY CONTROL TESTER.GDOTT Anesthesia Postop Eval I: Summary Notes Anesthesia Complication No 02/06/24 10:51 QUALITY CONTROL TESTER.GDOTT Anesthesia Complication Comment: Post-operative progress note Anesthesia: Postop Eval II Evaluation Mental status: Awake and Calm Pain Level: 0 nausea: No Vomiting: No Complications Anesthesia Complication: No
--- NOTE | 2024-02-06 11:30 | PCM.POSTANE2 ---
Anesthesia Postop Eval I Sum Postop Eval Completion status Anesthesia document: Postop Eval 1 completed: Yes Anesthesia Postop Eval I Summary Anesthesia Postop Eval I Summary: Anesthesia Postop Eval I: Assessment Summary Airway patent Yes 02/06/24 10:51 SLUNK SKIN CURER.[email or web address] Spontaneous unlabored Yes 02/06/24 10:51 SLUNK SKIN CURER.GDOTT respirations Mental status Awake,Calm 02/06/24 10:51 SLUNK SKIN CURER.GDOTT nausea No 02/06/24 10:51 SLUNK SKIN CURER.GDOTT Vomiting No 02/06/24 10:51 SLUNK SKIN CURER.GDOTT Anesthesia Postop Eval I: Fluid Summary Crystalloid volume administer 400 02/06/24 10:51 SLUNK SKIN CURER.GDOTT (ml) Colloids volume administered ( ml) Blood Product volume administered (ml) Total IV fluid infused 400 02/06/24 10:51 SLUNK SKIN CURER.GDOTT Anesthesia Postop Eval I: Summary Notes Anesthesia Complication No 02/06/24 10:51 SLUNK SKIN CURER.GDOTT Anesthesia Complication Comment: Post-operative progress note Anesthesia: Postop Eval II Evaluation Mental status: Awake and Calm Pain Level: 0 nausea: No Vomiting: No Complications Anesthesia Complication: No
== END 2024-02-06 11:34 | disposition home or self-care (01) ==
LOC: EN 09:23 → AC 09:25
PROVIDERS: PCP Family Medicine; Referring Provider Family Medicine; Visit Provider Surgery
PROC: 0DJD8ZZ Inspection of Lower Intestinal Tract, Via Natural or Artificial Opening Endoscopic (ICD-10-PCS; CPT 45378; principal; 2024-02-06 10:25)
DX: Z12.11 Encounter for screening for malignant neoplasm of colon (principal); I34.1 Nonrheumatic mitral (valve) prolapse; Z79.899 Other long term (current) drug therapy; Z86.16 Personal history of COVID-19
CPT/HCPCS: G0121; J7120

== ENCOUNTER → 2024-12-16 | Outpatient (CLI) | payer MEDICARE, SELFPAY ==
[2024-12-16 15:58] LABS: Anion Gap 12 (5-15); BUN 12 mg/dL (4-19); BUN/Creat Ratio 16.1 RATIO (10-20); Calcium,Total 9.5 mg/dL (7.6-11.0); Carbon Dioxide 24.7 mmol/L (21.0-32.0); Chloride 101 mmol/L (98-108); Cholesterol 224 mg/dL (<=200); Glucose 104 mg/dL (70-99); Low Density Lipoprotein Calc. 119 mg/dL; Potassium 3.7 mmol/L (3.3-5.1); Triglycerides 130 mg/dL; Very Low Density Lipoprotein 26 mg/dL (5-40); cholesterol:hdl ratio screen 2.82
== END | disposition home or self-care (01) ==
LOC: MFPLAB 12:16
PROVIDERS: PCP Family Medicine; Referring Provider Family Medicine; Visit Provider Family Medicine
DX: I10 Essential (primary) hypertension (principal)
CPT/HCPCS: 36415; 80048; 80061

== ENCOUNTER → 2025-01-20 | Outpatient (CLI) | payer MEDICARE, SELFPAY ==
--- NOTE | 2025-01-20 12:34 | BI_ITS ---
EXAM: SCRN MAMM (CAD)W/TOLU BILAT DATE: 01/20/2025 CLINICAL HISTORY: F, Age 79 y/o , SCREENING TECHNIQUE: SCRN MAMM (CAD)W/TOLU BILAT COMPARISON: Prior exam(s) were compared FINDINGS: TISSUE DENSITY: The breasts are heterogeneously dense, which may obscure small masses. Bilateral Breast Mammographic Findings: No suspicious masses, calcifications or other abnormalities are identified. BI/SCRN MAMM (CAD)W/TOLU BILAT IMPRESSION: No mammographic evidence of malignancy in either breast OVERALL FINAL ASSESSMENT BI-RADS 1: NEGATIVE. RECOMMENDATION: Routine annual follow-up in 1 Year A letter with findings and recommendations will be mailed to the patient. Reading Location: [id number]
--- NOTE | 2025-01-20 12:34 | BI_ITS ---
EXAM: SCRN MAMM (CAD)W/TOLU BILAT DATE: 01/20/2025 CLINICAL HISTORY: F, Age 79 y/o , SCREENING TECHNIQUE: SCRN MAMM (CAD)W/TOLU BILAT COMPARISON: Prior exam(s) were compared FINDINGS: TISSUE DENSITY: The breasts are heterogeneously dense, which may obscure small masses. Bilateral Breast Mammographic Findings: No suspicious masses, calcifications or other abnormalities are identified. BI/SCRN MAMM (CAD)W/TOLU BILAT IMPRESSION: No mammographic evidence of malignancy in either breast OVERALL FINAL ASSESSMENT BI-RADS 1: NEGATIVE. RECOMMENDATION: Routine annual follow-up in 1 Year A letter with findings and recommendations will be mailed to the patient. Reading Location: [id number]
== END | disposition home or self-care (01) ==
LOC: OPBI 12:32
PROVIDERS: PCP Family Medicine; Referring Provider Family Medicine; Visit Provider Family Medicine
DX: Z12.31 Encounter for screening mammogram for malignant neoplasm of breast (principal)
CPT/HCPCS: 77063; 77067

== ENCOUNTER → 2025-04-02 | Outpatient (CLI) | payer MEDICARE, SELFPAY ==
[2025-04-02 12:10] LABS: CRYSTALS, BODY FLUID NO CRYSTALS SEEN
[2025-04-02 12:11] LABS: Body Fluid QC Type(s) BF1; Source- Body Fluid SYNOVIAL
== END | disposition home or self-care (01) ==
LOC: LABSPEC 10:38
PROVIDERS: PCP Family Medicine; Referring Provider Podiatrist; Visit Provider Podiatrist
DX: M1A.9XX1 Chronic gout, unspecified, with tophus (tophi) (principal)
CPT/HCPCS: 89060